=== PATIENT | female | born 1945 | race Caucasian/White ===

== ENCOUNTER 2017-07-13 13:31 | Inpatient (IN) | payer MEDICARE ==
[2017-07-13] MEDS ORDERED: Ondansetron ODT 4 MG TAB PO PRN (20:06)
[2017-07-13] MEDS ORDERED: Loperamide HCl 2 MG CAP PO PRN (20:06)
[2017-07-13] MEDS ORDERED: Milk Of Magnesia 30 ML UDCUP PO PRN (20:06)
[2017-07-13] MEDS ORDERED: Dextrose 50% Abboject 50 ML SYRINGE IVP PRN (20:10)
[2017-07-13] MEDS ORDERED: Dextrose 5% in Water 1,000 ML IV PRN (20:10)
[2017-07-13] MEDS ORDERED: Levemir Flexpen 100 UNITS/ML PEN SC SCH ×2 (21:00)
[2017-07-13] MEDS ORDERED: Famotidine 20 MG TAB PO SCH (21:00)
[2017-07-13] MEDS: Amantadine HCl 100 mg Capsule PO SCH (21:05)
[2017-07-13] MEDS: Famotidine 20 MG TAB PO SCH (21:06)
[2017-07-13] MEDS: Carvedilol 25 MG TAB PO SCH (21:06)
[2017-07-13] MEDS: Gabapentin 300 MG CAP PO SCH (21:07)
[2017-07-13] MEDS: Levemir Flexpen 100 UNITS/ML PEN SC SCH (21:07)
[2017-07-13] MEDS: diphenhydrAMINE HCl 25 MG CAP PO PRN (21:08)
[2017-07-13] MEDS: Acetaminophen 325 MG TAB PO PRN (21:08)
[2017-07-13] MEDS: Insulin Regular 300 UNITS/3 ML VIAL SC PRN (21:09)
--- NOTE | 2017-07-14 01:27 | HP ---
DATE OF ADMISSION: 07/13/2017 DATE OF HISTORY AND PHYSICAL: 07/13/2017 HISTORY OF PRESENT ILLNESS: Ms. Khalil is a very pleasant 71-year-old white female that was transf erred to [facility] for physical therapy and occupational therapy because of her gen eralized weakness. The patient was recently admitted to [facility] with increasing shortness of breath, dyspnea thought to be multifactorial. She has chronic hypoxemic respiratory failure and is followe d closely by Dr. Hurt. The patient was recently admitted to [facility] and thought to p ossibly have a questionable new partially occlusive thrombus in the lobar section of the branch of t he right lung consistent with pulmonary embolism. She does have some chronic thrombus in that left lower lobe pulmonary artery. She was started on Lovenox and admitted to the hospital. She has been stabilized and actually doing very well, but is very weak. Therefore, she was transferred to [facility] for physical therapy and occupational therapy. PAST MEDICAL HISTORY: Significant for, 1. Hypertension. 2. Stroke. 3. Multiple sclerosis. 4. Diabetes. 5. Left leg crush injury. 6. Acute on chronic normocytic anemia with questionable gastrointestinal bleed. 7. Chronic vocal cord paralysis with stridor. 8. Chronic obstructive pulmonary disease. 9. Lung cancer status post chemotherapy and lung resection followed by Dr. Leah Gentile. 10. History of multiple pulmonary emboli in the past, on chronic anticoagulation with Coumadin with a subtherapeutic dose. 11. Coronary artery disease, status post myocardial infarction with cardiac stents in the distant p ast. 12. Diabetes type 2, requiring insulin. PAST SURGICAL HISTORY: 1. Brain stent. 2. Appendectomy. 3. . 4. Hysterectomy with unilateral oophorectomy. 5. Knee surgery. 6. Ankle surgery. 7. Bilateral cataract surgery. 8. Left upper lobectomy secondary to lung cancer, adenocarcinoma. 9. Recent cardiac stent. 10. Endoscopy. 11. MediPort placement on the right chest wall. PRESENT MEDICATIONS: Reveal the patient was discharged to [facility] on the followin. Lovenox 110 mg subcu a day. 2. Plavix 75 mg a day. 3. Carvedilol 25 mg a day. 4. Lantus 35 units b.i.d. subcu. 5. Novolin aggressive sliding scale with meals. 6. Crestor 20 mg daily. 7. Amantadine 100 mg 3 times a day for her MS. 8. Pepcid 20 mg b.i.d. 9. Gabapentin 300 mg daily. 10. Sleep aid which is a Tylenol PM at night. ALLERGIES: CRAB MEAT. FAMILY HISTORY: Reveals patient's father in his 50s of ID, but he also had diabetes. The dony ent's mom at 62 of suicide. She was bipolar. Patient has no brothers or sisters. She has one son who is 42 and just started having diabetes. SOCIAL HISTORY: Reveals the patient lives in [place], [place] and is . She denies any recen t smoking, but has a 60+ pack year history. She states she smoked for 40 years and smoked anywhere from 1-2 packs a day, the majority of that time close to 2 packs. The patient usually has 2 drinks of hard liquor every evening, but has not had any drinks in the last 2 weeks. The patient stopped s moking in 08/2015. REVIEW OF SYSTEMS: Reveals the patient has had complaints of weight loss and mainly short of breath . She has not had any fever, chills, etc. She denies any significant rashes. She denies any grimaldo e in her vision or hearing. She denies any ear, nose or throat problems. She denies any significan t palpitations, but does have significant dyspnea on exertion. No orthopnea. She was short of yasmin th and occasionally wheezes. She has a paralyzed vocal cord from her lung surgery that gives her st ridor. She complains of better appetite since she is here, she states that food is very good. Zoltan es any nausea, vomiting, constipation or diarrhea at this time. Denies any urgency, frequency. She states she has significant weakness mainly because of her shortness of breath, but has had some pro blems with fatigue. PHYSICAL EXAMINATION: VITAL SIGNS: Reveal blood pressure 140/65, pulse 77-82, respirations 18-20, O2 saturation 98%, pres ently on room air, T-max 98.3. Point of care sugar was 310 before supper. GENERAL: Reveals a well-developed, well-nourished, somewhat obese white female in no apparent distr ess at this time. HEENT: Reveals normocephalic, nontraumatic cranium. Pupils are equally round and reactive. Extrao cular movements are intact. Nose and throat are slightly dry. NECK: Supple, without masses, nodes or bruits. No jugular venous distention is noted. LUNGS: Chest sounds are distant. Right upper chest wall MediPort is noted. HEART: Reveals a regular rate and rhythm without murmurs, gallops or rubs. ABDOMEN: Soft, nontender, without organomegaly. Somewhat obese. Normal bowel sounds are noted in all 4 quadrants. No rebound or guarding is noted. GENITOURINARY: Deferred. EXTREMITIES: Reveal no clubbing, cyanosis with minimal trace edema. NEUROLOGIC: The patient is oriented to person, place and time. No focal signs are noted. ASSESSMENT: 1. Chronic pulmonary emboli, presently on Lovenox 110 mg q.24 hours. The patient will not be on Cou madin. She will go home on Lovenox. 2. Chronic hypoxic respiratory failure followed by Dr. Hurt. 3. Acute on chronic normocytic anemia, unknown etiology for blood loss followed by Dr. Fofana with EGD on 07/08/2017. 4. Diabetes type 2, requiring 35 units of Lantus b.i.d. and aggressive sliding scale. 5. Chronic vocal cord paralysis secondary to patient's lung surgery. 6. FULL code. 7. Multiple sclerosis. 8. Generalized weakness. PLAN: 1. The patient will have physical therapy and occupational therapy. 2. We will continue with Lovenox 110 mg subcu daily. 3. Continue other medications. 4. Continue to follow the patient's diabetes with accu-Cheks a.c. and at bedtime with appropriate i nsulin supplementation. 5. Continue to follow the patient's blood pressure closely. 6. Follow the patient's respiratory status closely. 7. Follow the patient's blood pressure closely. 8. Discharge planning.
[2017-07-14] MEDS: Insulin Regular 300 UNITS/3 ML VIAL SC PRN ×4 (06:00→20:39)
[2017-07-14] MEDS ORDERED: Insulin Regular 300 UNITS/3 ML VIAL SC SCH (08:00)
[2017-07-14] MEDS: Carvedilol 25 MG TAB PO SCH ×2 (08:28→20:37)
[2017-07-14] MEDS: Enoxaparin Sodium 120 MG/0.8 ML SYRINGE SC SCH (08:28)
[2017-07-14] MEDS: Amantadine HCl 100 mg Capsule PO SCH ×3 (08:28→20:37)
[2017-07-14] MEDS: Clopidogrel Bisulfate 75 MG TAB PO SCH (08:28)
[2017-07-14] MEDS: Levemir Flexpen 100 UNITS/ML PEN SC SCH ×2 (08:29→20:38)
[2017-07-14] MEDS: Gabapentin 300 MG CAP PO SCH ×3 (08:29→20:37)
[2017-07-14] MEDS: Famotidine 20 MG TAB PO SCH ×2 (08:29→20:37)
[2017-07-14] MEDS ORDERED: Levemir Flexpen 100 UNITS/ML PEN SC SCH (09:00)
[2017-07-14] MEDS ORDERED: Enoxaparin Sodium 30 MG/0.3 ML SYRINGE SC SCH (09:00)
[2017-07-14 11:48] VITALS: BMI 28.1
--- NOTE | 2017-07-14 13:48 | PRG ---
DATE OF SERVICE: 07/14/2017 HISTORY OF PRESENT ILLNESS: Ms. Khalil is a pleasant 71-year-old white female that was transferred from [facility] to [facility], because of generalized weakness. She also has diabetes out of control, hypertension and multiple sclerosis. She was transferred here mainly f or physical therapy and occupational therapy. SUBJECTIVE: The patient states she is doing much better. She walked around the nurses' station, st opped a couple times for shortness of breath, but she states she actually felt much better than she thought she would. She is getting a little stronger and her respiratory status is slightly improved . She has no complaints today. LABORATORY DATA: No labs were done today. Her sugars are elevated. Her point of care sugars revea l sugar yesterday before supper 310, before bedtime 294, fasting this morning 286, before lunch 294. We have adjusted her Levemir from 36 units b.i.d. to 40 units b.i.d. We will watch that closely. She is already on aggressive sliding scale. PHYSICAL EXAMINATION: GENERAL: This is a well-developed, well-nourished, slightly obese white female, in no apparent dist ress at this time. VITAL SIGNS: Today reveal the blood pressure is 129/55, O2 sat is 94-95, pulse is in the 70s, respi rations are 20, T-max is 96.6. HEENT: Reveals normocephalic, nontraumatic cranium. Pupils are equally round and reactive. Extrao cular movements intact. Nose and throat are slightly dry. NECK: Supple, without masses, nodes or bruits. CHEST: Clear to auscultation. No rales, rhonchi or wheezes are heard. Right upper chest wall has a MediPort. CARDIOVASCULAR: Heart reveals a regular rate and rhythm. No rubs, murmurs, gallops or rubs are not ed. ABDOMEN: Soft, obese, nontender, without organomegaly. Normal bowel sounds are noted in all 4 quad rants. No rebound or guarding is noted. GENITOURINARY: Deferred. EXTREMITIES: Reveal no clubbing, cyanosis or edema. NEUROLOGIC: Patient is oriented to person, place and time. The patient's is in the room wi th her. ASSESSMENT: 1. Chronic pulmonary emboli present on Lovenox 110 mg subcutaneously q.24 hours and the patient christina hunter go home on Lovenox. 2. Hypoxic chronic respiratory failure, followed by Dr. Hurt. 3. Acute on chronic normocytic anemia, unknown etiology for blood loss, followed by Dr. Fofana. 4. Diabetes type 2, presently on 40 units of Lantus b.i.d. and aggressive sliding scale. 5. Chronic vocal cord paralysis secondary to patient's lung surgery. 6. Full code. 7. Multiple sclerosis. 8. Generalized weakness. PLAN: 1. Continue Lovenox 110 mg subcu daily. 2. Increase the patient's Levemir to 40 units subcu b.i.d. and continue aggressive sliding scale. 3. Continue other present medications. 4. Continue respiratory medications. 5. Continue physical therapy and occupational therapy. 6. Laboratory on Monday. Otherwise, probably would do laboratory every week 1-2 weeks. 7. Followup the patient's blood pressure closely. 8. Continue to follow the patient with Accu-Cheks a.c. and at bedtime. 9. Continue physical therapy and occupational therapy. 10. Deep venous thrombosis and stress ulcer prophylaxis. 11. Decubitus precautions. 12. Discharge planning.
[2017-07-14] MEDS: Acetaminophen 325 MG TAB PO PRN (20:37)
[2017-07-14] MEDS: diphenhydrAMINE HCl 25 MG CAP PO PRN (20:38)
[2017-07-15 05:33] LABS: #Basophils 0.1 thou/uL (0.0-0.2); #Eosinphils 0.2 thou/uL (0.0-0.7); #Lymphocytes 2.3 thou/uL (1.20-3.40); #Monocytes 0.6 thou/uL (0.11-0.59); #Neutrophils 3.3 thou/uL (1.40-6.50); %Basophils 1.1 % (0.0-1.0); %Eosinophils 2.5 % (0.0-10.0); %Lymphocytes 35.9 % (21.0-51.0); %Monocytes 9.6 % (0.0-10.0); Hemoglobin 8.6 g/dL (12.0-16.0); Mean Corpuscular HGB CONC 32.1 g/dL (32.0-36.0); Mean Corpuscular Hemoglobin 30.4 pg (27.0-31.0); Mean Corpuscular Volume 94.5 fl (81.0-99.0); Mean Platelet Volume 7.8 fL (7.4-10.4); Platelet Count 183 thou/uL (130-400); Red Blood Cell (RBC) Count 2.84 mill/uL (4.20-5.40); White Blood Cell (WBC) Count 6.4 thou/uL (4.8-10.8)
[2017-07-15 05:55] LABS: ALT (SGPT) 17 U/L (8-55); AST (SGOT) 9 U/L (5-34); Albumin 3.2 g/dL (3.4-4.8); Alkaline Phosphatase 75 U/L (40-150); Anion Gap 12 mmol/L (10-20); BUN (Urea Nitrogen) 22 mg/dL (9.8-20.1); Bilirubin, Total 0.2 mg/dL (0.2-1.2); Calc. Creatinine Clearance 60 mL/min (70-130); Calcium 9.3 mg/dL (7.8-10.44); Carbon Dioxide 26 mmol/L (23-31); Chloride 107 mmol/L (98-107); Estimated GFR-MDRD 55; Globulin 2.3 g/dL (2.4-3.5); Glucose 74 mg/dL (80-115); Potassium 4.1 mmol/L (3.5-5.1); Protein, Total 5.5 g/dL (6.0-8.3); Sodium 141 mmol/L (136-145)
[2017-07-15] MEDS: Carvedilol 25 MG TAB PO SCH ×2 (08:29→20:55)
[2017-07-15] MEDS: Enoxaparin Sodium 120 MG/0.8 ML SYRINGE SC SCH (08:29)
[2017-07-15] MEDS: Clopidogrel Bisulfate 75 MG TAB PO SCH (08:29)
[2017-07-15] MEDS: Amantadine HCl 100 mg Capsule PO SCH ×3 (08:29→20:55)
[2017-07-15] MEDS: Levemir Flexpen 100 UNITS/ML PEN SC SCH ×2 (08:30→20:55)
[2017-07-15] MEDS: Gabapentin 300 MG CAP PO SCH ×3 (08:30→20:55)
[2017-07-15] MEDS: Famotidine 20 MG TAB PO SCH ×2 (08:30→20:55)
--- NOTE | 2017-07-15 09:40 | PRG ---
DATE OF SERVICE: 07/15/2017 SUBJECTIVE: The patient is a 71-year-old white female patient of Dr. Fernando Michael with a history o f labile controlled diabetes, hypertension, and multiple sclerosis and recurrent pulmonary embolus o f unknown etiology who presents now with another pulmonary embolus and has been placed on subcu Love nox indefinitely and admitted to the skilled unit for acute conditioning. She has had thrombosis ev aluation with no etiology for her recurrent pulmonary embolus as this is her second pulmonary embolu s despite no provoking event. At this time she feels well with no shortness of breath at rest. No chest pain, palpitations, dyspnea or leg pain. OBJECTIVE: Shows her blood pressure 115/63, temperature 97.8, pulse 74, respirations 18, O2 sats 95 %. Laboratory shows white count 6400, hematocrit 26, hemoglobin 8.6, platelet 183,000. Sodium 141, potassium 4.1, chloride 107, bicarbonate 26, BUN 22, creatinine 1, glucose 74, calcium 9.3, total b ilirubin 0.2, total protein 5.5, albumin 3.2, globulin 2.3. Lungs are clear. Cardiac examination s hows regular rhythm. Abdomen is soft, nontender. Skin and extremities show no edema or swelling Ac cu-Cheks are variable ranging from 80-375 on sliding scale. ASSESSMENT: 1. Labile diabetes controlled with sliding scale at home. We will continue that here. 2. Recurrent pulmonary embolus of unknown etiology, unprovoked on Lovenox 110 mg daily, subcu and w ill continue on this. 3. Hypoxic respiratory failure, resolving. 4. Acute on chronic anemia, stable at this time, being followed. 5. Multiple sclerosis. 6. Mild vocal cord paralysis. PLAN: 1. Continue Lovenox 110 daily. 2. Continue sliding scale and Levemir 40 units twice daily. 3. Continue to monitor blood pressure and orthostatic vital signs with therapy. 4. Continue DVT and stress ulcer prophylaxis. 5. Continue oxygen supplementation if needed.
[2017-07-15] MEDS: Insulin Regular 300 UNITS/3 ML VIAL SC PRN ×3 (11:39→20:56)
[2017-07-15] MEDS: diphenhydrAMINE HCl 25 MG CAP PO PRN (20:54)
[2017-07-15] MEDS: Acetaminophen 325 MG TAB PO PRN (20:55)
[2017-07-16] MEDS: Amantadine HCl 100 mg Capsule PO SCH ×3 (08:33→21:14)
[2017-07-16] MEDS: Carvedilol 25 MG TAB PO SCH ×2 (08:33→21:14)
[2017-07-16] MEDS: Clopidogrel Bisulfate 75 MG TAB PO SCH (08:33)
[2017-07-16] MEDS: Famotidine 20 MG TAB PO SCH ×2 (08:34→21:14)
[2017-07-16] MEDS: Enoxaparin Sodium 120 MG/0.8 ML SYRINGE SC SCH (08:34)
[2017-07-16] MEDS: Gabapentin 300 MG CAP PO SCH ×3 (08:34→21:14)
[2017-07-16] MEDS: Levemir Flexpen 100 UNITS/ML PEN SC SCH ×2 (08:34→21:15)
[2017-07-16] MEDS: Insulin Regular 300 UNITS/3 ML VIAL SC PRN ×3 (12:03→21:16)
[2017-07-16] MEDS ORDERED: FLU VACC TS2017-18 (>65YR) 0.5 ML SYRINGE IM ONE (21:00)
[2017-07-16] MEDS: Acetaminophen 325 MG TAB PO PRN (21:14)
[2017-07-16] MEDS: diphenhydrAMINE HCl 25 MG CAP PO PRN (21:14)
[2017-07-17] MEDS: Acetaminophen 325 MG TAB PO PRN ×3 (07:24→20:23)
[2017-07-17] MEDS: Enoxaparin Sodium 120 MG/0.8 ML SYRINGE SC SCH (08:38)
[2017-07-17] MEDS: Levemir Flexpen 100 UNITS/ML PEN SC SCH ×2 (08:40→20:22)
[2017-07-17] MEDS: Amantadine HCl 100 mg Capsule PO SCH ×3 (08:42→20:21)
[2017-07-17] MEDS: Famotidine 20 MG TAB PO SCH ×2 (08:42→20:21)
[2017-07-17] MEDS: Gabapentin 300 MG CAP PO SCH ×3 (08:42→20:22)
[2017-07-17] MEDS: Clopidogrel Bisulfate 75 MG TAB PO SCH (08:42)
[2017-07-17] MEDS: Carvedilol 25 MG TAB PO SCH ×2 (08:42→20:21)
[2017-07-17] MEDS: Insulin Regular 300 UNITS/3 ML VIAL SC PRN ×3 (11:35→20:23)
--- NOTE | 2017-07-17 17:09 | PRG ---
DATE OF SERVICE: 07/17/2017 DATE OF ADMISSION: 07/13/2017 HISTORY OF PRESENT ILLNESS: Ms. Khalil is a very pleasant 71-year-old white female transferred fro [facility] with generalized weakness. She has multiple problems including diabetes out o f control, hypertension, and multiple sclerosis. She is transferred here mainly for physical therap y and for pulmonary therapy. SUBJECTIVE: The patient states she had a really good day yesterday. She walked quite a bit, but th is morning when she got up to go to the bathroom, she had significant shortness of breath and became anxious. Otherwise, she has no complaints. She actually had been feeling better and little bit st ronger. PHYSICAL EXAMINATION: VITAL SIGNS: Reveal blood pressure is 111/58, pulse 74-83, respirations 18, O2 sat 95%, T-max 97.9. GENERAL: This is a well-developed, well-nourished, pleasant white female in no apparent distress at this time. HEENT: Reveals normocephalic, nontraumatic cranium. Pupils are equally round and reactive. Extrao cular movements are intact. Nose and throat are slightly dry. NECK: Supple, without masses, nodes or bruits. CHEST: Distant but clear. Breath sounds are slow. CARDIOVASCULAR: Reveals a regular rate and rhythm without murmurs, gallops or rubs. ABDOMEN: Slightly obese, soft, nontender, without organomegaly. Normal bowel sounds are noted. No rebound or guarding is noted. : Deferred. EXTREMITIES: Reveal no clubbing, cyanosis, and no edema. NEUROLOGIC: Patient is oriented to person, place and time. The patient's is again in the r oom. ASSESSMENT: 1. Chronic pulmonary emboli, presently on Lovenox 110 mg subcu q.24 hours. The patient will go nilay e on Lovenox with this dose. 2. Hypoxic chronic respiratory failure followed by Dr. Alvarado. 3. Acute on chronic normocytic anemia, etiology unknown for blood loss, followed by Dr. Fofana. 4. Diabetes type 2, presently on 40 units Lantus b.i.d. and aggressive sliding scale. 5. Chronic vocal cord paralysis secondary to patient's lung surgery. 6. FULL CODE. 7. Multifocal sclerosis 8. Generalized weakness. PLAN: 1. Continue Lovenox subcu once daily. 2. Increase the patient's Levemir, which we are continuing to follow her sugars to 40 units b.i.d. and continue aggressive sliding scale. 3. Continue Accu-Cheks a.c. and at bedtime. 4. Continue to follow the patient's blood pressure closely. 5. Continue PT and OT. 6. Continue DVT and stress ulcer prophylaxis. 7. Decubitus precautions. 8. Discharge planning.
[2017-07-17] MEDS: diphenhydrAMINE HCl 25 MG CAP PO PRN (20:23)
[2017-07-17] MEDS ORDERED: FLU VACC QS2017-18 36 mo. & older 0.5 ML SYRINGE IM ONE (21:00)
[2017-07-18] MEDS: Acetaminophen 325 MG TAB PO PRN ×3 (05:42→19:02)
[2017-07-18] MEDS: Insulin Regular 300 UNITS/3 ML VIAL SC PRN ×3 (05:43→17:22)
[2017-07-18] MEDS ORDERED: FLU VACC QS2017-18 36 mo. & older 0.5 ML SYRINGE IM ONE (09:00)
[2017-07-18] MEDS: Clopidogrel Bisulfate 75 MG TAB PO SCH (09:07)
[2017-07-18] MEDS: Levemir Flexpen 100 UNITS/ML PEN SC SCH ×3 (09:08→21:21)
[2017-07-18] MEDS: Enoxaparin Sodium 120 MG/0.8 ML SYRINGE SC SCH (09:08)
[2017-07-18] MEDS: Gabapentin 300 MG CAP PO SCH ×3 (09:08→20:45)
[2017-07-18] MEDS: Carvedilol 25 MG TAB PO SCH ×2 (09:08→20:44)
[2017-07-18] MEDS: Amantadine HCl 100 mg Capsule PO SCH ×3 (09:08→20:44)
[2017-07-18] MEDS: Famotidine 20 MG TAB PO SCH ×2 (09:08→20:45)
[2017-07-18] MEDS: diphenhydrAMINE HCl 25 MG CAP PO PRN (20:45)
[2017-07-18] MEDS: Cyclobenzaprine 10 MG TAB PO PRN (21:22)
--- NOTE | 2017-07-18 23:41 | PRG ---
DATE OF SERVICE: 07/18/2017 SUBJECTIVE: The patient is a 72-year-old very pleasant white female transferred from [facility] with multiple medical problems including hypertension, diabetes out of control, multiple scler osis, headaches, and COPD. The patient states she had a good day today. It is [birth year] birthday today. She did walk this morning and states she is getting somewhat stronger. She is still concerned abou t her shortness of breath and when she gets short of breath, she becomes more anxious. She also is complaining about waking up with a headache which is more described as a muscle contraction headache . We will try a little cyclobenzaprine 10 mg p.r.n. muscle spasm headaches. Otherwise, the patient has no complaints. PHYSICAL EXAMINATION: VITAL SIGNS: Reveal blood pressure is 142/59, pulse 66-69, respirations 18-20, O2 saturation 90%-96 %. GENERAL: This is a well-developed, well-nourished, slightly obese white female, in no apparent dist ress at this time. HEENT: Reveals normocephalic, nontraumatic cranium. Pupils are equally round and reactive. Extrao cular movements are intact. Nose and throat are somewhat dry. NECK: Supple without masses, nodes, or bruits. CHEST: Clear to auscultation but very distant. Breath sounds reveal some prolonged expiratory, but no wheezes. HEART: Reveals a regular rate and rhythm without murmurs, gallops, or rubs. ABDOMEN: Still slightly obese, nontender without organomegaly. Normal bowel sounds are noted. No guarding or rebound is noted. GENITOURINARY: Deferred. EXTREMITIES: Reveal no clubbing, cyanosis, or edema today. NEUROLOGIC: The patient is oriented to person, place, time, and situation. ASSESSMENT: 1. Chronic obstructive pulmonary disease. 2. Chronic pulmonary emboli, on Lovenox 110 mcg subcutaneous q. 24 hours. 3. Chronic hypoxic respiratory failure, followed by Dr. Alvarado. 4. Acute on chronic normocytic anemia, unknown etiology, followed by Dr. Fofana. 5. Diabetes type 2, presently on Lantus 40 units b.i.d. and aggressive sliding scale. 6. Chronic vocal cord paralysis secondary to the patient's lung cancer, followed by Dr. Silverio. 7. FULL CODE. 8. Multiple sclerosis. 9. Generalized weakness. PLAN: 1. Continue Lovenox. 2. Continue to adjust the patient's sugars closely and watch his sugars. 3. Continue Accu-Cheks a.c. and at bedtime. 4. Follow the patient's blood pressure closely. 5. Continue physical therapy, occupational therapy. 6. Deep venous thrombosis and stress ulcer prophylaxis. 7. Decubitus precaution. 8. Discharge planning. 9. The patient's [id number] sugars reveal this morning fasting 154, before lunch 152, before bed time 256. We will increase her Lantus again.
[2017-07-19 05:20] LABS: Platelet Count 256 thou/uL (130-400)
[2017-07-19] MEDS: Insulin Regular 300 UNITS/3 ML VIAL SC PRN ×4 (05:35→20:37)
[2017-07-19] MEDS: Acetaminophen 325 MG TAB PO PRN (06:09)
[2017-07-19] MEDS: Amantadine HCl 100 mg Capsule PO SCH ×3 (08:18→20:35)
[2017-07-19] MEDS: Famotidine 20 MG TAB PO SCH ×2 (08:19→20:36)
[2017-07-19] MEDS: Carvedilol 25 MG TAB PO SCH ×2 (08:19→20:35)
[2017-07-19] MEDS: Enoxaparin Sodium 120 MG/0.8 ML SYRINGE SC SCH (08:19)
[2017-07-19] MEDS: Clopidogrel Bisulfate 75 MG TAB PO SCH (08:19)
[2017-07-19] MEDS: Levemir Flexpen 100 UNITS/ML PEN SC SCH ×2 (08:20→20:36)
[2017-07-19] MEDS: Gabapentin 300 MG CAP PO SCH ×3 (08:20→20:36)
[2017-07-19] MEDS: Cyclobenzaprine 10 MG TAB PO PRN ×2 (11:47→20:36)
--- NOTE | 2017-07-20 00:09 | PRG ---
DATE OF ADMISSION: 07/13/2017 DATE OF SERVICE: 07/19/2017 HISTORY OF PRESENT ILLNESS: Ms. Khalil is a very pleasant 72-year-old white female transferred to [facility] for physical therapy and occupational therapy. She had acute COPD and respiratory failu re. She also has MS, hypertension, diabetes out of control, headaches. The patient states she is doing much better. She did take cyclobenzaprine 10 mg and Benadryl 25 las t night and was very unstable going to the bathroom last night. That was too much medication for he r. She states she woke up this morning feeling much better without a headache. She did take a Flex eril during the day today without a hangover and it did help her headache. She states she is breath ing much better and actually went to the bathroom with help from her and came back, was shor t of breath, but much improved than what she had been doing. LABORATORY DATA: Today reveal hemoglobin 9.0, hematocrit 28.4, which is improved. Her GFR is up to 51. Her creatinine 1.07. Point of care sugars today reveal sugar this morning 161, before lunch 2 89, before supper 175. OBJECTIVE: VITAL SIGNS: Reveal blood pressure 106/53, pulse 71, respirations 18, O2 sat 96%, T-max 98.9. GENERAL: This is a well-developed, well-nourished, slightly obese white female in no apparent distr ess at this time. HEENT: Reveals normocephalic, nontraumatic cranium. Pupils are equally round and reactive. Extrao cular movements intact. Nose and throat are clear, slightly dry. NECK: Supple, without masses, nodes or bruits. No jugular venous distention is noted. LUNGS: Breath sounds are distant, but clear. Less cough is noted today. No rales, rhonchi or whee zes are heard. CARDIOVASCULAR: Heart reveals a regular rate and rhythm without murmurs, gallops or rubs. ABDOMEN: Slightly obese. Nontender, without organomegaly. Normal bowel sounds are noted in all 4 quadrants. No guarding or rebound is noted. : Deferred. EXTREMITIES: Reveal no clubbing, cyanosis or edema. The patient continues to be oriented x4. ASSESSMENT: 1. Chronic obstructive pulmonary disease. 2. Chronic pulmonary emboli, on Lovenox 110 mcg subcu daily. 3. Chronic hypoxic respiratory failure followed by Dr. Alvarado. 4. Acute on chronic normocytic anemia of unknown etiology. Followed by Dr. Fofana. 5. Diabetes type 2 presently on Lantus 40 b.i.d. and an aggressive sliding scale. Sugars are sligh tly improved. 6. Chronic cord paralysis secondary to patient's lung cancer surgery, followed by Dr. Silverio. 7. FULL CODE. 8. Multiple sclerosis. 9. Generalized weakness. PLAN: 1. Continue physical therapy and occupational therapy. 2. We will continue follow Accu-Cheks a.c. and at bedtime and adjust insulin Lantus is noted. 3. We will continue patient's blood pressure closely. 4. Continued deep venous thrombosis and stress ulcer prophylaxis. 5. Continue decubitus precautions. 6. Discharge planning.
[2017-07-20] MEDS: Cyclobenzaprine 10 MG TAB PO PRN ×2 (04:49→20:34)
[2017-07-20] MEDS: Insulin Regular 300 UNITS/3 ML VIAL SC PRN ×4 (05:36→20:32)
[2017-07-20] MEDS: Clopidogrel Bisulfate 75 MG TAB PO SCH (08:46)
[2017-07-20] MEDS: Enoxaparin Sodium 120 MG/0.8 ML SYRINGE SC SCH (08:46)
[2017-07-20] MEDS: Famotidine 20 MG TAB PO SCH ×2 (08:46→20:31)
[2017-07-20] MEDS: Amantadine HCl 100 mg Capsule PO SCH ×3 (08:46→20:31)
[2017-07-20] MEDS: Gabapentin 300 MG CAP PO SCH ×3 (08:46→20:31)
[2017-07-20] MEDS: Carvedilol 25 MG TAB PO SCH ×2 (08:46→20:31)
[2017-07-20] MEDS: Levemir Flexpen 100 UNITS/ML PEN SC SCH ×2 (08:47→20:34)
[2017-07-20] MEDS: Acetaminophen 325 MG TAB PO PRN (10:38)
--- NOTE | 2017-07-20 21:11 | PRG ---
DATE OF SERVICE: 07/20/2017 HISTORY OF PRESENT ILLNESS: Ms. Khalil is a very pleasant 72-year-old white female who has had mul tiple medical problems and is basically transferred here for physical therapy, occupational therapy, and pulmonary rehabilitation. SUBJECTIVE: The patient states she is doing much better today. She was able to do some type of the rapy today for 6 minutes, yesterday was only 2 minutes and the day before it was 1 minute. She stat es she is breathing little bit better, but she continues to have lots of secretions. She continues to used to have headache, we did some pressure points that helped a little bit, but states cyclobenz aprine helps a little bit, not tremendously. She has no other complaints today. PHYSICAL EXAMINATION: VITAL SIGNS: Blood pressure is 121/56, pulse 68-71, respirations 18-20, O2 sat 95-96%, T-max 98.9. GENERAL: This is a well-developed, well-nourished, very pleasant white female in no apparent distre ss at this time. HEENT: Reveals normocephalic, nontraumatic cranium. Pupils are equally round and reactive. Extrao cular movements intact. Nose and throat are clear but continued to be slightly dry. NECK: Supple without masses, nodes or bruits. LUNGS: Chest reveals distant breath sounds. The patient continues to have loose raspy type cough. No rales or rhonchi are heard. No wheezes are heard. CARDIOVASCULAR: Reveals a regular rate and rhythm without murmurs, gallops or rubs. ABDOMEN: Soft, nontender without organomegaly. Normal bowel sounds in all 4 quadrants. No rebound or guarding. GENITOURINARY: Deferred. EXTREMITIES: Reveal no clubbing, cyanosis or edema. ASSESSMENT: 1. Chronic obstructive pulmonary disease. 2. Chronic pulmonary emboli, on Lovenox 110 mcg subQ daily. 3. Chronic hypoxic respiratory failure followed by Dr. Alvarado. 4. Acute on chronic normocytic anemia of unknown etiology, followed by Dr. Fofana. 5. Diabetes type 2. We increased her Lantus from 40-44 and now we are increasing it to 48. 6. Chronic cord paralysis secondary to the patient's lung cancer surgery, followed by Dr. Silverio. 7. FULL CODE. 8. Multiple sclerosis. 9. Generalized weakness. PLAN: 1. Continue to encourage the patient to eat well. 2. Continue stress ulcer prophylaxis. 3. DVT prophylaxis. 4. Decubitus precautions. 5. Continue physical therapy and occupational therapy. 6. We will continue follow Accu-Cheks a.c. and at bedtime and monitor Lantus and adjust as noted. 7. Continue to follow the patient's blood pressure closely. 8. DVT and stress ulcer prophylaxis. 9. Continue decubitus precautions. 10. Discharge planning.
[2017-07-21] MEDS: Insulin Regular 300 UNITS/3 ML VIAL SC PRN ×3 (05:44→21:25)
[2017-07-21 06:01] LABS: Platelet Count 265 thou/uL (130-400)
[2017-07-21] MEDS: Levemir Flexpen 100 UNITS/ML PEN SC SCH ×2 (08:46→21:26)
[2017-07-21] MEDS: Enoxaparin Sodium 120 MG/0.8 ML SYRINGE SC SCH (08:49)
[2017-07-21] MEDS: Cyclobenzaprine 10 MG TAB PO PRN (08:50)
[2017-07-21] MEDS: Gabapentin 300 MG CAP PO SCH ×3 (08:50→21:28)
[2017-07-21] MEDS: Acetaminophen 325 MG TAB PO PRN (08:50)
[2017-07-21] MEDS: Famotidine 20 MG TAB PO SCH ×2 (08:51→21:28)
[2017-07-21] MEDS: Carvedilol 25 MG TAB PO SCH ×2 (08:51→21:28)
[2017-07-21] MEDS: Amantadine HCl 100 mg Capsule PO SCH ×3 (08:51→21:28)
[2017-07-21] MEDS: Clopidogrel Bisulfate 75 MG TAB PO SCH (08:51)
--- NOTE | 2017-07-21 09:32 | PRG ---
DATE OF SERVICE: 07/21/2017 HISTORY: Ms. Khalil is a very pleasant 72-year-old white female with multiple medical problems. B asically she was transferred to [facility] for physical therapy, occupational therap y, and pulmonary rehab. SUBJECTIVE: The patient states she has had a good night last night, but she has a terrible headache this morning. She is supposed asked for her cyclobenzaprine when she has these muscle type headach es. I did some pressure points which helped a little bit, but she will still ask for her cyclobenza lashon this morning. She has no significant complaints and states her breathing is somewhat better. VITAL SIGNS: Blood pressure this morning is 136/63, pulse 68-71, respirations 18-20, O2 sat 95-100% , T-max 98.1. LABORATORY: Laboratory reveals a hemoglobin 9.0, hematocrit 28.6 and platelet count 265,000. Creat inine is 1.23. GFR is 43. Her point of care sugars reveal fasting this morning 184, last night 281 , before supper 190, before lunch not recorded, yesterday morning fasting 155. The patient's sugars are generally overall slightly better. When we first admitted her, they were typically 250 to 375. Typically now she has only 1 that is in the 200s per day and we will continue to adjust her insuli n as those come down. PHYSICAL EXAMINATION: GENERAL: This is a well-developed, well-nourished, pleasant white female in no apparent distress at this time. HEENT: Reveals normocephalic, nontraumatic cranium. Pupils are equally round and reactive. Extrao cular movements intact. Nose and throat are slightly dry. NECK: Supple, without masses, nodes or bruits. CHEST: Clear to auscultation. No rales, no rhonchi, no wheezes are heard. HEART: Reveals a regular rate and rhythm without murmurs, gallops or rubs. ABDOMEN: Slightly obese, soft, nontender, without organomegaly. Normal bowel sounds are noted in a ll 4 quadrants. : Deferred. EXTREMITIES: Reveal no clubbing, cyanosis or edema. ASSESSMENT: 1. Pulmonary emboli, presently on Lovenox 110 subcutaneous daily, and she will go home with that. 2. Chronic obstructive pulmonary disease. 3. Chronic hypoxic respiratory failure followed by Dr. Alvarado. 4. Acute on chronic normocytic anemia of unknown etiology, followed by Dr. Fofana. 5. Diabetes type 2, under much better control. 6. 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 Silverio. 7. Multiple sclerosis. 8. Generalized weakness. 9. Full code. PLAN: 1. Continue to encourage the patient to get up and move around per her PT, OT, and pulmonary rehab. 2. Continue stress ulcer prophylaxis. 3. DVT prophylaxis. 4. Decubitus precautions. 5. Physical therapy and occupational therapy. 6. Continue to follow Accu-Cheks and adjust insulin Lantus as needed. 7. Follow the patient's blood pressure closely. 8. Continue decubitus precautions. 9. DVT and stress ulcer prophylaxis. 10. Discharge planning.
[2017-07-22] MEDS: Cyclobenzaprine 10 MG TAB PO PRN ×2 (05:51→21:35)
[2017-07-22] MEDS: Acetaminophen 325 MG TAB PO PRN ×2 (05:51→21:36)
[2017-07-22] MEDS: Levemir Flexpen 100 UNITS/ML PEN SC SCH ×2 (08:47→21:36)
[2017-07-22] MEDS: Enoxaparin Sodium 120 MG/0.8 ML SYRINGE SC SCH (08:48)
[2017-07-22] MEDS: Famotidine 20 MG TAB PO SCH ×2 (08:50→21:36)
[2017-07-22] MEDS: Gabapentin 300 MG CAP PO SCH ×3 (08:50→21:36)
[2017-07-22] MEDS: Carvedilol 25 MG TAB PO SCH ×2 (08:50→21:36)
[2017-07-22] MEDS: Amantadine HCl 100 mg Capsule PO SCH ×3 (08:50→21:35)
[2017-07-22] MEDS: Clopidogrel Bisulfate 75 MG TAB PO SCH (08:50)
[2017-07-22] MEDS: Insulin Regular 300 UNITS/3 ML VIAL SC PRN ×2 (11:32→16:41)
--- NOTE | 2017-07-22 12:10 | PRG ---
DATE OF SERVICE: 07/22/[address] Xavier Michael. SUBJECTIVE: The patient is resting well. No complaints of shortness of breath, chest pain, headach e, fatigue at rest. Has been eating well and cooperating with therapy. OBJECTIVE: VITAL SIGNS: Show temperature 99.3, pulse 75, respirations 18, blood pressure 161/65, and O2 sats 9 1%. LUNGS: Clear. CARDIAC: Examination shows regular rhythm. ABDOMEN: Soft, nontender. SKIN AND EXTREMITIES: Show no edema, clubbing, cyanosis. ASSESSMENT: 1. Stable pulmonary embolus on Lovenox 110 mg subcutaneously daily. 2. Metastatic lung cancer being followed by Dr. Gentile. 3. Multiple sclerosis, chronic. 4. Type 2 diabetes under good control. 5. Chronic hypoxic respiratory failure, appears to be stable, being followed by Dr. Alvarado. 6. Stable chronic obstructive pulmonary disease. PLAN: Continue Lovenox. Continue physical therapy and occupational therapy. Continue Accu-Cheks, control diabetes. Discussed discharge planning with PCP, Dr. Michael. Continue above-mentioned the rapy including Lovenox be discharged home. Continue Lantus subcutaneously twice daily and sliding s kaye.
[2017-07-23 05:57] LABS: Hemoglobin 9.2 g/dL (12.0-16.0); Platelet Count 260 thou/uL (130-400)
[2017-07-23] MEDS: Carvedilol 25 MG TAB PO SCH ×2 (08:41→21:08)
[2017-07-23] MEDS: Famotidine 20 MG TAB PO SCH ×2 (08:41→21:09)
[2017-07-23] MEDS: Amantadine HCl 100 mg Capsule PO SCH ×3 (08:41→21:09)
[2017-07-23] MEDS: Clopidogrel Bisulfate 75 MG TAB PO SCH (08:41)
[2017-07-23] MEDS: Gabapentin 300 MG CAP PO SCH ×3 (08:42→21:09)
[2017-07-23] MEDS: Enoxaparin Sodium 120 MG/0.8 ML SYRINGE SC SCH (08:42)
[2017-07-23] MEDS: Levemir Flexpen 100 UNITS/ML PEN SC SCH ×2 (08:44→21:07)
--- NOTE | 2017-07-23 13:33 | PRG ---
DATE OF SERVICE: 07/23/2017 SUBJECTIVE: The patient feels well, sitting up in the chair, visiting with her , has had her shower with no difficulty. Has been ambulating some in the room, feels she is getting better, but is still very weak. OBJECTIVE: VITAL SIGNS: Blood pressure 118/53, temperature is 95.9, pulse 63, respirations 18, O2 sats 98% on room air. LUNGS: Clear. CARDIAC: Regular rhythm. ABDOMEN: Soft, nontender. SKIN and EXTREMITIES: Show no edema, clubbing, or cyanosis. ASSESSMENT: 1. Resolving pulmonary embolus on Lovenox 110 mg subcu daily. 2. Metastatic lung cancer being followed by Dr. Gentile every 3 months on no therapy with no sympto ms. 3. Type 2 diabetes, good control. 4. Chronic hypoxic respiratory failure, greatly improved with O2 sat 98% on room air at this time. 5. Multiple sclerosis, slowly improving strength. PLAN: 1. Continue PT, OT. 2. Continue Lovenox. 3. Continue stress ulcer prophylaxis. 4. Dr. Michael back tomorrow.
[2017-07-23] MEDS: Acetaminophen 325 MG TAB PO PRN (21:08)
[2017-07-23] MEDS: Cyclobenzaprine 10 MG TAB PO PRN (21:09)
[2017-07-23] MEDS: Insulin Regular 300 UNITS/3 ML VIAL SC PRN (21:11)
[2017-07-24] MEDS: Clopidogrel Bisulfate 75 MG TAB PO SCH (08:49)
[2017-07-24] MEDS: Enoxaparin Sodium 120 MG/0.8 ML SYRINGE SC SCH (08:49)
[2017-07-24] MEDS: Amantadine HCl 100 mg Capsule PO SCH ×3 (08:49→20:33)
[2017-07-24] MEDS: Carvedilol 25 MG TAB PO SCH ×2 (08:49→20:33)
[2017-07-24] MEDS: Famotidine 20 MG TAB PO SCH ×2 (08:50→20:33)
[2017-07-24] MEDS: Gabapentin 300 MG CAP PO SCH ×3 (08:50→20:33)
[2017-07-24] MEDS: Levemir Flexpen 100 UNITS/ML PEN SC SCH ×2 (08:50→20:34)
--- NOTE | 2017-07-24 13:40 | PRG ---
DATE OF ADMISSION: 07/13/2017 DATE OF SERVICE: 07/24/2017 SUBJECTIVE: Ms. Khalil is a very pleasant 72-year-old white female. She was transferred to [facility] for physical therapy, occupational therapy, and pulmonary rehabilitation. She basically has multiple medical problems including COPD with a pulmonary emboli on top of that and di abetes type 2 which has been significantly out of control. LABORATORY DATA: Reveals a hemoglobin of 9.2, hematocrit 29.5, which is improving. Creatinine is 1 .29. GFR 41. Her sugars this morning fasting was 42, given a snack went to 66 now before lunch was 161. Last night before bedtime 279, before supper 155, before lunch 129, before breakfast yesterda y morning 89. Her sugars were low, so we did decrease her Levemir from 48 b.i.d. to 46 b.i.d. PHYSICAL EXAMINATION: VITAL SIGNS: Reveal blood pressure this morning 156/58, pulse 63-73, respirations 20, O2 sat 94%-96 % on room air, temperature 98.2. GENERAL: This is a well-developed, well-nourished, very pleasant white female in no apparent distre ss at this time. HEENT: Reveals normocephalic, nontraumatic cranium. Pupils are equally round and reactive. Extrao cular movements intact. Nose and throat are still slightly dry, but clear. NECK: Supple, without masses, nodes or bruits. LUNGS: Chest is clear to auscultation. Breath sounds are noted be distant. No rales, no rhonchi, no wheezes are heard. The patient does have raspy cough, but she has a paralyzed vocal cord, has lo ts of secretions that she always coughs up. HEART: Regular rate and rhythm without murmurs, gallops or rubs. ABDOMEN: Slightly obese, soft, nontender. Normal bowel sounds are noted. GENITOURINARY: Exam deferred. EXTREMITIES: Reveal no clubbing, cyanosis or edema. IMPRESSION: 1. Chronic obstructive pulmonary disease with acute exacerbation. 2. Pulmonary emboli, presently on Lovenox 110 subcu daily and she will go home with that. 3. Chronic hypoxic respiratory failure followed by Dr. Alvarado. 4. [id number] normocytic anemia, unknown etiology, followed by Dr. Fofana. 5. Diabetes type 2, much better controlled. 6. 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 Silverio. 7. Multiple sclerosis. 8. Generalized weakness. 9. FULL CODE. PLAN: 1. Continue physical therapy and occupational therapy. 2. Continue pulmonary rehabilitation. 3. Continue stress ulcer prophylaxis. 4. Continue DVT prophylaxis with Lovenox 110 daily subcu. 5. Decubitus precautions. 6. Continue Accu-Cheks a.c. 7. Decrease Lantus to 46 units b.i.d. 8. Follow patient's blood pressure closely. 9. Discharge planning.
[2017-07-24] MEDS: Insulin Regular 300 UNITS/3 ML VIAL SC PRN (16:33)
[2017-07-24] MEDS: Cyclobenzaprine 10 MG TAB PO PRN (20:32)
[2017-07-24] MEDS: Acetaminophen 325 MG TAB PO PRN (20:33)
[2017-07-25 05:39] LABS: Hemoglobin 8.9 g/dL (12.0-16.0); Platelet Count 246 thou/uL (130-400)
[2017-07-25] MEDS: Enoxaparin Sodium 120 MG/0.8 ML SYRINGE SC SCH (08:40)
[2017-07-25] MEDS: Clopidogrel Bisulfate 75 MG TAB PO SCH (08:40)
[2017-07-25] MEDS: Amantadine HCl 100 mg Capsule PO SCH ×3 (08:40→21:09)
[2017-07-25] MEDS: Carvedilol 25 MG TAB PO SCH ×2 (08:40→21:08)
[2017-07-25] MEDS: Levemir Flexpen 100 UNITS/ML PEN SC SCH ×2 (08:41→21:08)
[2017-07-25] MEDS: Famotidine 20 MG TAB PO SCH ×2 (08:41→21:09)
[2017-07-25] MEDS: Gabapentin 300 MG CAP PO SCH ×3 (08:41→21:09)
[2017-07-25] MEDS: Cyclobenzaprine 10 MG TAB PO PRN ×2 (11:39→21:09)
[2017-07-25] MEDS: Acetaminophen 325 MG TAB PO PRN ×2 (11:39→21:09)
[2017-07-25] MEDS: Insulin Regular 300 UNITS/3 ML VIAL SC PRN (16:44)
--- NOTE | 2017-07-25 17:18 | PRG ---
DATE OF SERVICE: 07/25/2017. Ms. Khalil is a very pleasant 72-year-old white female that was admitted to [facility] w ith dyspnea, chronic hypoxemic respiratory failure, possible pulmonary emboli, hypertension, multipl e sclerosis, diabetes, chronic vocal cord paralysis, COPD, lung cancer. The patient was stabilized and seemed to be doing well and was transferred to [facility] for physical therapy, occupational therapy, and to adjust her sugars. PHYSICAL EXAMINATION: VITAL SIGNS: Blood pressure 130/59, pulse 65-74, respirations 18, O2 sat 95-96%, temperature 98.5. GENERAL: This is a well-developed, well-nourished, very pleasant white female, in no apparent distr ess at this time. HEENT: Reveals normocephalic, nontraumatic cranium. Pupils are equally round and reactive. Extrao cular movements intact. Nose and throat are slightly dry. NECK: Supple, without masses, nodes or bruits. LUNGS: Chest reveals shallow breath sounds and distant breath sounds. No rales, rhonchi or wheezes are heard. The patient has an occasional raspy cough mainly from lots of secretions in her paralyz ed vocal. HEART: Reveals a regular rate and rhythm without murmurs, gallops or rubs. ABDOMEN: Obese, soft, nontender, without organomegaly. Normal bowel sounds are noted. EXAM: Deferred. EXTREMITIES: Reveal no clubbing, cyanosis or edema. IMPRESSION: 1. Chronic obstructive pulmonary disease with acute exacerbation, much improved. 2. Pulmonary emboli, presently on Lovenox 110 mg subcu daily. 3. Chronic hypoxic respiratory failure followed by Dr. Alvarado. 4. Acute on chronic normocytic anemia. 5. Diabetes type 2, much improved, controlled. 6. Chronic cord paralysis secondary to the patient lung cancer followed by Dr. Silverio. 7. Multiple sclerosis. 8. Generalized weakness. 9. Full code. PLAN: 1. Continue physical therapy and occupational therapy. 2. We will continue pulmonary rehabilitation 3. Continue stress ulcer prophylaxis. 4. Continue DVT prophylaxis with Lovenox. 5. Continue decubitus precautions. 4. Continue Accu-Cheks a.c. and at bedtime. 5. Lantus has been decreased to 46 and a sugar this morning was 128 fasting. 6. Follow up patient's blood pressure closely. 7. Discharge planning.
[2017-07-26] MEDS: Levemir Flexpen 100 UNITS/ML PEN SC SCH ×2 (08:44→20:13)
[2017-07-26] MEDS: Clopidogrel Bisulfate 75 MG TAB PO SCH (08:46)
[2017-07-26] MEDS: Famotidine 20 MG TAB PO SCH ×2 (08:46→20:13)
[2017-07-26] MEDS: Amantadine HCl 100 mg Capsule PO SCH ×3 (08:46→20:14)
[2017-07-26] MEDS: Carvedilol 25 MG TAB PO SCH ×2 (08:46→20:14)
[2017-07-26] MEDS: Gabapentin 300 MG CAP PO SCH ×3 (08:46→20:14)
[2017-07-26] MEDS: Enoxaparin Sodium 120 MG/0.8 ML SYRINGE SC SCH (08:49)
[2017-07-26] MEDS: Insulin Regular 300 UNITS/3 ML VIAL SC PRN (16:53)
--- NOTE | 2017-07-26 17:10 | PRG ---
DATE OF SERVICE: 07/26/2017 DATE OF ADMISSION: 07/13/2017 SUBJECTIVE: Ms. Khalil is a very pleasant 72-year-old white female admitted to [facility] with dyspnea, chronic hypoxic respiratory therapy, pulmonary emboli, hypertension, multiple scleros is, diabetes, chronic vocal paralysis, COPD, and lung cancer. The patient was stabilized and did very well and was transferred to [facility] for p hysical therapy, occupational therapy, and adjusted her medications. Her sugar was completely out o f balance. PHYSICAL EXAMINATION: VITAL SIGNS: Today reveals blood pressure 123/54, pulse 62-82, respirations 16-18, O2 sat 97%-99% o n room air, temperature 98.2. When the patient starts walking around, she significantly desats down to 80s. Weight is 158 pounds and 12.8 ounces. GENERAL: This is a well-developed, well-nourished, very pleasant, slightly obese white female in no apparent distress at this time. HEENT: Reveals normocephalic, nontraumatic cranium. Pupils are equally round and reactive. Extrao cular movements intact. Nose and throat are somewhat dry but clear. NECK: Supple, without masses, nodes or bruits. CHEST: Has shallow breath sounds and distant breath sounds. No rales, rhonchi, wheezes or cough is heard. The patient has had raspy cough, seems better today. She does have lots of secretions from her vocal cords that usually cause her to cough, but she has not coughed in the room today. HEART: Reveals a regular rate and rhythm without murmurs, gallops or rubs. ABDOMEN: Slightly obese, soft, nontender, without organomegaly. Normal bowel sounds are noted. : Deferred. EXTREMITIES: Reveal no clubbing, cyanosis or edema. IMPRESSION: 1. Chronic obstructive pulmonary disease with acute exacerbation, much improved. 2. Pulmonary emboli, presently on Lovenox 10 mg subcu daily. 3. Chronic hypoxic respiratory failure followed by Dr. Alvarado. 4. Acute on chronic normocytic anemia. 5. Diabetes type 2, much improved. 6. Chronic cord paralysis secondary to the patient's lung cancer followed by Dr. Silverio. 7. Multiple sclerosis. 8. Generalized weakness. 9. FULL CODE. PLAN: 1. Continue physical therapy. 2. Continue stress ulcer prophylaxis. 3. Continue DVT prophylaxis with Lovenox 110 mg daily. 4. Continue decubitus precautions. 5. Accu-Cheks a.c. and at bedtime. 6. Lantus is presently at 46 units twice a day. 7. Continue to follow the patient's blood pressure. 8. Discharge planning for discharge, Monday. 9. The patient will be discharged with a prescription for pulmonary rehabilitation to follow.
[2017-07-26] MEDS: Cyclobenzaprine 10 MG TAB PO PRN (20:12)
[2017-07-26] MEDS: Acetaminophen 325 MG TAB PO PRN (20:13)
[2017-07-27 05:26] LABS: Hemoglobin 9.8 g/dL (12.0-16.0); Platelet Count 250 thou/uL (130-400)
[2017-07-27] MEDS: Enoxaparin Sodium 120 MG/0.8 ML SYRINGE SC SCH (08:37)
[2017-07-27] MEDS: Amantadine HCl 100 mg Capsule PO SCH ×3 (08:38→20:27)
[2017-07-27] MEDS: Clopidogrel Bisulfate 75 MG TAB PO SCH (08:38)
[2017-07-27] MEDS: Carvedilol 25 MG TAB PO SCH ×2 (08:38→20:27)
[2017-07-27] MEDS: Famotidine 20 MG TAB PO SCH ×2 (08:38→20:27)
[2017-07-27] MEDS: Gabapentin 300 MG CAP PO SCH ×3 (08:38→20:27)
[2017-07-27] MEDS: Levemir Flexpen 100 UNITS/ML PEN SC SCH ×2 (08:39→20:28)
--- NOTE | 2017-07-27 10:18 | PRG ---
DATE OF SERVICE: 07/27/2017 HISTORY: Ms. Khalil is a very pleasant 72-year-old white female with multiple medical problems. S he initially was seen at [facility] with chronic hypoxic respiratory failure, pulmonary emb kalani, hypertension, multiple sclerosis, chronic vocal cord paralysis, diabetes and a history of lung cancer. She was transferred to [facility] for physical therapy, occupational therapy, and fo r adjustment of her sugars. VITAL SIGNS: Today reveal blood pressure 132/60, pulse 69-76, respirations 16-18, O2 sat 96-98% at rest, temperature max 98.7. LABORATORY: Revealed hemoglobin 9.8, hematocrit 32.1, platelet count 250,000. Creatinine 1.13. GF R is 47. Accu-Cheks reveal yesterday morning fasting 92, before lunch 146, before supper 165, befor e bedtime 251, fasting this morning was 97. Patient did not get her evening bedtime sliding scale b ecause she did not have a snack. PHYSICAL EXAMINATION: GENERAL: This is a well-developed, well-nourished, very pleasant, slightly obese white female in no apparent distress at this time. HEENT: Reveals normocephalic, nontraumatic cranium. Pupils are equally round and reactive. Extrao cular movements intact. Nose and throat are slightly dry, but clear. NECK: Supple, without masses, nodes or bruits. LUNGS: Chest is clear to auscultation. No rales, no rhonchi, no wheezes are heard. Minimal cough is noted today. The patient does have shallow breaths and distant breath sounds. The patient evaristo nued to have lots of secretions, especially from her paralyzed vocal cord. CARDIOVASCULAR: Reveals a regular rate and rhythm without murmurs, gallops or rubs. ABDOMEN: Slightly obese, soft, nontender, without organomegaly. Normal bowel sounds are noted. : Deferred. EXTREMITIES: Reveal no clubbing, cyanosis or edema. IMPRESSION: 1. Chronic obstructive pulmonary disease with acute exacerbation, much improved. 2. Pulmonary emboli presently on Lovenox 110 mcg subcu daily. 3. Chronic hypoxic respiratory failure followed by Dr. Alvarado. 4. Acute on chronic normocytic anemia. 5. Diabetes type 2, much improved. 6. Chronic vocal cord paralysis secondary to patient's lung cancer followed by Dr. Silverio. 7. Multiple sclerosis. 8. Generalized weakness. 9. Full code. PLAN: 1. I did fill out the patient's pulmonary rehab papers request for her to start that. Will start w ith the next session. 2. Accu-Cheks a.c. and at bedtime. 3. Continue to monitor the patient's blood pressure. 4. Continue Lantus at 46 units twice a day and sliding scale, aggressive. 5. Continue PT and OT. 6. Continue stress ulcer prophylaxis. 7. Continue DVT prophylaxis with Lovenox 110. 8. Patient will go home on Lovenox 110 mg daily at [facility]. 9. Discharge tomorrow afternoon.
[2017-07-27] MEDS: Acetaminophen 325 MG TAB PO PRN ×2 (15:57→20:33)
[2017-07-27] MEDS: Insulin Regular 300 UNITS/3 ML VIAL SC PRN ×2 (17:12→20:28)
[2017-07-27] MEDS: diphenhydrAMINE HCl 25 MG CAP PO PRN (20:33)
[2017-07-28] MEDS: Insulin Regular 300 UNITS/3 ML VIAL SC PRN ×2 (06:26→11:23)
[2017-07-28 07:55] VITALS: TEMP 97.4
[2017-07-28] MEDS: Amantadine HCl 100 mg Capsule PO SCH ×2 (08:28→14:52)
[2017-07-28] MEDS: Carvedilol 25 MG TAB PO SCH (08:28)
[2017-07-28] MEDS: Clopidogrel Bisulfate 75 MG TAB PO SCH (08:28)
[2017-07-28] MEDS: Levemir Flexpen 100 UNITS/ML PEN SC SCH (08:29)
[2017-07-28] MEDS: Famotidine 20 MG TAB PO SCH (08:29)
[2017-07-28] MEDS: Gabapentin 300 MG CAP PO SCH ×2 (08:29→14:53)
[2017-07-28] MEDS: Enoxaparin Sodium 120 MG/0.8 ML SYRINGE SC SCH (08:29)
[2017-07-28 11:17] VITALS: BP 137/64
--- NOTE | 2017-07-28 18:34 | PRG ---
DATE OF SERVICE: 07/28/2017 DATE OF ADMISSION: 07/13/2017 HISTORY OF PRESENT ILLNES: Ms. Khalil is a very pleasant 72-year-old white female initially seen a [facility] with chronic hypoxic respiratory failure, pulmonary emboli, hypertension, mult iple sclerosis, chronic vocal cord paralysis, diabetes out of control and history of lung cancer. T he patient was transferred to [facility] for control of her sugars, physical therapy and occupational therapy. OBJECTIVE: VITAL SIGNS: Today reveal blood pressure 145/64, pulse 70-72, respirations 18-20, O2 sat 93%-96% on room air resting, temperature max 98.8. LABORATORY DATA: Laboratories today revealed sugars fasting yesterday morning 97, before lunch 80, before supper 178, before bedtime 233, fasting this morning for some reason was significantly elevat ed at 266. PHYSICAL EXAMINATION: GENERAL: Reveals a well-developed, well-nourished, pleasant white female, in no apparent distress a t this time. HEENT: Reveals normocephalic, nontraumatic cranium. Pupils equal, round, and reactive. Extraocula r movements intact. Nose and throat are slightly dry. NECK: Supple without masses, nodes or bruits. CHEST: Clear to auscultation, no rales, rhonchi or wheezes are heard, minimal cough is noted today. The patient does have some shallow breath sounds in the distant past. The patient continues to davis ve secretions, but are improved. The patient does have paralyzed vocal cord followed by Dr. Silverio. HEART: Reveals a regular rate and rhythm without murmurs, gallops or rubs. ABDOMEN: Soft, nontender, without organomegaly, normal bowel sounds are noted. No rebound or guard ing is noted. GENITOURINARY: Deferred. EXTREMITIES: Reveal no clubbing, cyanosis or edema. IMPRESSION: 1. Chronic obstructive pulmonary disease with acute exacerbation, much improved, followed by Dr. Cali mccartney. 2. Chronic hypoxic respiratory failure followed by Dr. Alvarado. 3. Acute on chronic normocytic anemia. 4. Diabetes type 2, much improved. 5. Chronic vocal cord paralysis secondary to patient's lung cancer surgery followed by Dr. Silverio. 6. Multiple sclerosis. 7. Generalized weakness. 8. FULL CODE. PLAN: 1. The patient has been referred to pulmonary rehabilitation, those papers have been done. 2. Patient is for discharge this afternoon. 3. We will continue to monitor the patient's blood pressure. 4. Continue Lantus at 46 units twice a day and aggressive sliding scale. 5. Continue physical therapy and occupational therapy. 6. Continue stress ulcer prophylaxis. 7. DVT prophylaxis with Lovenox 110 mg already been sent to [facility] that was supposed t o be arrive today. DISCHARGE MEDICATIONS: Will include the following, 1. Tylenol 650 p.r.n. 2. Amantadine 100 mg 3 times a day. 3. Coreg or carvedilol 25 mg b.i.d. 4. Plavix 75 mg daily. 5. Lovenox 110 mg subcu daily. 6. Gabapentin 300 mg 3 times a day. 7. Lantus 46 units subcutaneous b.i.d. 8. Humulin Regular on aggressive sliding scale, which means 150-200 mg give 3 units, 200-250 give 6 units, 250-300 give 9 units, 300-350 give 12 units, and greater than 350 give 15 units. 9. Crestor 20 mg every evening. 10. The patient has been given prescriptions for Lantus pen for 3-month supply and for Humalog R. The patient will see me within 1 or 2 weeks. I have spent more than 45 minutes discharging this patient.
== END 2017-07-28 16:00 | disposition home or self-care (01) | DRG 948 ==
LOC: NAV ACUTE 13:31
PROVIDERS: ADMIT Family Medicine; ATTEND Family Medicine
DX: R53.1 Weakness (principal); J96.11 Chronic respiratory failure with hypoxia; I27.82 Chronic pulmonary embolism; E11.65 Type 2 diabetes mellitus with hyperglycemia; D62 Acute posthemorrhagic anemia; J38.00 Paralysis of vocal cords and larynx, unspecified; J44.1 Chronic obstructive pulmonary disease with (acute) exacerbation; G35 Multiple sclerosis; Z79.4 Long term (current) use of insulin; I10 Essential (primary) hypertension; Z79.01 Long term (current) use of anticoagulants; I25.10 Atherosclerotic heart disease of native coronary artery without angina pectoris; Z95.5 Presence of coronary angioplasty implant and graft; I25.2 Old myocardial infarction; Z87.891 Personal history of nicotine dependence; Z86.73 Personal history of transient ischemic attack (TIA), and cerebral infarction without residual deficits; Z85.118 Personal history of other malignant neoplasm of bronchus and lung; D50.0 Iron deficiency anemia secondary to blood loss (chronic); E66.9 Obesity, unspecified; Z71.3 Dietary counseling and surveillance; Z68.28 Body mass index [BMI] 28.0-28.9, adult; Z23 Encounter for immunization
CPT/HCPCS: 36415; 36416; 80053; 82565; 85014; 85018; 85025; 85049; J1650; J1815

== ENCOUNTER 2017-08-14 17:50 | Inpatient (IN) | payer MEDICARE ==
[2017-08-14 19:07] VITALS: BMI 28.5
[2017-08-14] MEDS ORDERED: Acetaminophen 325 MG TAB PO PRN (20:20)
[2017-08-14] MEDS ORDERED: Dextrose 50% Abboject 50 ML SYRINGE SLOW IVP PRN (20:31)
[2017-08-14] MEDS ORDERED: Insulin Regular 300 UNITS/3 ML VIAL SC PRN (20:31)
[2017-08-14] MEDS ORDERED: Ondansetron ODT 4 MG TAB PO PRN (20:31)
[2017-08-14] MEDS ORDERED: Dextrose 5% in Water 1,000 ML IV PRN (20:31)
[2017-08-14] MEDS ORDERED: diphenhydrAMINE 25 MG CAP PO PRN (20:49)
[2017-08-14] MEDS ORDERED: Melatonin 3 MG TAB PO SCH (21:00)
[2017-08-14] MEDS: Docusate 100 MG CAP PO SCH (21:55)
[2017-08-14] MEDS: Amiodarone 200 MG TAB PO SCH (21:55)
[2017-08-14] MEDS: Famotidine 20 MG TAB PO SCH (21:55)
[2017-08-14] MEDS: Amantadine HCl 100 mg Capsule PO SCH (21:55)
[2017-08-14] MEDS: Gabapentin 300 MG CAP PO SCH (21:55)
[2017-08-14] MEDS: Carvedilol 25 MG TAB PO SCH (21:55)
[2017-08-14] MEDS: Levemir Flexpen 100 UNITS/ML PEN SC SCH (22:01)
[2017-08-14 23:17] LABS: Bilirubin Negative (Negative); Blood, Urine Trace (Negative); Clarity Clear (Clear); Glucose, Urine (Dipstick) 500 mg/dL (Negative); Leukocyte Small (Negative); Nitrite Positive (Negative); Protein, Urine (Dipstick) 30 mg/dL (Neg-Trace); Specific Gravity, Urine 1.015 (1.005-1.030); Urobilinogen 0.2 mg/dL (0.2-1.0)
[2017-08-14 23:18] LABS: Bacteria/HPF 4+ HPF (None Seen); RBC/HPF 0-3 HPF (0-3); Squamous Epithelial 0-3 HPF (0-3)
[2017-08-15 05:20] LABS: Hemoglobin 9.1 g/dL (12.0-16.0); Mean Corpuscular HGB CONC 32.6 g/dL (32.0-36.0); Mean Corpuscular Hemoglobin 31.5 pg (27.0-31.0); Mean Corpuscular Volume 96.5 fl (81.0-99.0); Mean Platelet Volume 7.9 fL (7.4-10.4); Platelet Count 251 thou/uL (130-400); RBC Distribution Width 12.7 % (11.5-14.5); White Blood Cell (WBC) Count 8.8 thou/uL (4.8-10.8)
[2017-08-15 05:21] LABS: Band 3 % (5-11); Eosinophils 3 % (0-10); Lymphocytes 16 % (21-51); MDiff Complete? YES; Monocytes 6 % (0-10); Neutrophil 71 % (42-75); PLT Morphology Comment Appears Adequate; RBC Morphology Normal
[2017-08-15 05:29] LABS: Anion Gap 12 mmol/L (10-20); BUN (Urea Nitrogen) 17 mg/dL (9.8-20.1); Calc. Creatinine Clearance 70 mL/min (70-130); Calcium 10.1 mg/dL (7.8-10.44); Carbon Dioxide 32 mmol/L (23-31); Chloride 95 mmol/L (98-107); Estimated GFR-MDRD 66; Glucose 100 mg/dL (83-110); Potassium 4.6 mmol/L (3.5-5.1); Sodium 134 mmol/L (136-145)
--- NOTE | 2017-08-15 08:40 | HP ---
DATE OF ADMISSION: 08/14/2017 DATE OF HISTORY AND PHYSICAL: 08/14/2017 HISTORY OF PRESENT ILLNESS: Ms. Khalil is a very pleasant 72-year-old white female with a history of lung cancer diagnosed in 09/2015. She had a lung resection of the right upper lobe. Unfortunate ly, the patient had some vocal cord damage thought to be secondary to that surgery. Dr. Silverio has been following the patient and unfortunately, she has had increased respiratory distress and history of pulmonary embolism contributing to shortness of breath. She was scheduled for tracheostomy, but prior to that, the patient was found to be in atrial fib/flutter. She was given IV Cardizem. Card iology was consulted and she eventually converted. She was transitioned back over to Lovenox and Dr Scot Silverio did do her tracheostomy, I believe on 08/09/2017. Postoperative, the patient has actually done very well and has become extremely short of breath whenever she does any activity. It was felt that she would benefit from physical therapy, occupational therapy, and speech therapy for several days. The patient was transferred to [facility] for physical therapy, occupational therapy, speech therapy, and continued care. PAST MEDICAL HISTORY: 1. Hypertension. 2. Multiple sclerosis. 3. Diabetes. 4. Stroke. 5. Left leg crush injury. 6. Acute on chronic normocytic anemia with questionable gastrointestinal bleed. 7. Chronic vocal cord paralysis with stridor. 8. Chronic obstructive pulmonary disease. 9. Lung cancer, status post chemotherapy by Dr. Gentile. 10. Lung resection by Dr. Petty. 11. History of multiple pulmonary emboli in the past, on chronic anticoagulation with Lovenox 110 m g daily. 12. Coronary artery disease, status post myocardial infarction with cardiac stents in the distant p ast. 13. Diabetes type 2, requiring insulin. PAST SURGICAL HISTORY: 1. Brain stent. 2. Appendectomy. 3. . 4. Hysterectomy with unilateral oophorectomy. 5. Knee surgery. 6. Ankle surgery. 7. Bilateral cataract surgery. 8. Left upper lobectomy secondary to adenocarcinoma of the lung by Dr. Petty. 9. Recent cardiac stent. 10. Endoscopy. 11. MediPort placement in the right chest wall. MEDICATIONS: Reveal the patient is presently on the followin. Plavix 75 mg a day. 2. Rosuvastatin 20 mg a day. 3. Tylenol 650 q.4 p.r.n. 4. Amantadine 1000 mg t.i.d. 5. Amiodarone 200 mg at bedtime. 6. Aspirin 81 mg a day. 7. Carvedilol 25 mg twice a day. 8. Vitamin B12 of 1000 mcg a day. 9. Colace 100 mg twice a day. 10. Lovenox 110 mg subcu daily. 11. Pepcid 20 mg twice a day. 12. Gabapentin 300 mg 3 times a day. 13. Glucagon p.r.n. hypoglycemia. 14. Stovall 5/325 q.4 hours p.r.n. severe pain. 15. Aggressive sliding scale Humulin R. 16. Bedtime sliding scale Humulin R. 17. Levemir 40 units subcutaneous each morning. 18. Levemir 32 units subcutaneously at bedtime. 19. Lactulose 20 grams daily p.r.n. 20. Losartan 100 mg daily. 21. Melatonin 9 mg at bedtime. 22. Zofran 4 mg q.6 p.r.n. 23. Benadryl 25 mg at bedtime p.r.n. insomnia. ALLERGIES: The patient is noted to be allergic to CRAB MEAT. FAMILY HISTORY: Reveals patient's father in his 80s of [place], but he also had diabetes. Patient' s mother at age 62 of suicide. She is bipolar. The patient has no brothers or sisters. Ian power has one son who is 42 and just started having diabetes. SOCIAL HISTORY: Reveals the patient lives near [place], and is . She denies any recent sm oking, but has a 60+ pack year smoking. She smoked for 40 years and smoked anywhere from 1-2 packs a day. Majority of the time close to 2 packs. The patient typically has 2 drinks of hard liquor ev camille evening, but has not had any since she has been in the hospital, the patient stopped smoking in 08/2015. REVIEW OF SYSTEMS: The patient has difficulty talking because of her recent trach. She is able to write and answer questions. She denies fever, chills, etc. Denies any significant rashes. Denies change in vision or hearing. Denies any ear, nose, or throat problems except for new tracheostomy b y Dr. Silverio. Denies any palpitations, although she did have atrial fib/flutter. She states her br eathing is much better and she is not near short of breath. She has noted no orthopnea. She has no wheezing today. She does have vocal cord paralysis from lung surgery on one side, but on the other side, is having problems. Denies any nausea, vomiting, constipation or diarrhea at this time. She does have a Tenorio catheter in place because she typically straight catheterized herself but was les ble to do at this time, she has retention. She does have increasing fatigue and she says extreme we akness. PHYSICAL EXAMINATION: GENERAL: Reveals a well-developed, well-nourished, very pleasant white female in no apparent distre ss at this time. HEENT: Reveals normocephalic, nontraumatic cranium. Pupils are equally round and reactive. Extrao cular movements intact. Nose and throat are slightly dry. Tracheostomy is noted in place which is suctioned. NECK: Supple, without masses, nodes or bruits. Tracheostomy is well secured. CHEST: Clear to auscultation. The patient has no significant stridor at this time. She has no nav rtness of breath. She has no wheezes. HEART: Reveals a regular rate and rhythm, which is rate controlled at this time. ABDOMEN: Obese, soft, nontender, without organomegaly. Normal bowel sounds are noted. No rebound or guarding is noted. : Reveals Tenorio catheter in place. EXTREMITIES: Reveal no clubbing, cyanosis with trace edema. Patient is oriented person, place, tiffany e, and situation. ASSESSMENT: 1. Recent permanent trach placed by Dr. Silverio on 08/09/2017. 2. Generalized weakness with patient barely able to stand. 3. Chronic pulmonary emboli. Presently on Lovenox 110 mg q.24 hours. 4. Chronic hypoxic respiratory failure followed by Dr. Hurt. 5. Permanent pacemaker placed. 6. Acute on chronic normocytic anemia. 7. Diabetes type 2 on Lantus and aggressive sliding scale. 8. Chronic vocal cord paralysis secondary to patient's lung surgery. 9. FULL CODE. 10. Multiple sclerosis. 11. Generalized weakness. PLAN: 1. The patient will have physical therapy and occupational therapy. 2. We will consult speech therapy. 3. Continued Lovenox 110 mcg daily. 4. Continue amiodarone 200 mg every evening. 5. Follow the patient's rate closely. 6. Follow the patient's blood pressure closely. 7. Continue Accu-Cheks a.c. and at bedtime. 8. Continue to follow the patient's blood pressure closely. 9. Continue to monitor the patient's respiratory status. 10. Stress ulcer prophylaxis. 11. Decubitus precautions. 12. Deep venous thrombosis prophylaxis. 13. Physical therapy and occupational therapy, and speech therapy.
[2017-08-15] MEDS: Levemir Flexpen 100 UNITS/ML PEN SC SCH ×2 (08:47→20:51)
[2017-08-15] MEDS: Enoxaparin Sodium 120 MG/0.8 ML SYRINGE SC SCH (09:45)
[2017-08-15] MEDS: Rosuvastatin 10 MG TAB PO SCH (09:45)
[2017-08-15] MEDS: Aspirin 81 mg Enteric Coated Tablet PO SCH (09:45)
[2017-08-15] MEDS: Cyanocobalamin (Vitamin B-12) 1,000 MCG TAB PO SCH (09:46)
[2017-08-15] MEDS: Amantadine HCl 100 mg Capsule PO SCH ×3 (09:46→20:50)
[2017-08-15] MEDS: Clopidogrel Bisulfate 75 MG TAB PO SCH (09:46)
[2017-08-15] MEDS: Losartan 25 MG TAB PO SCH (09:46)
[2017-08-15] MEDS: Carvedilol 25 MG TAB PO SCH ×2 (09:46→20:51)
[2017-08-15] MEDS: Docusate 100 MG CAP PO SCH ×2 (09:47→20:51)
[2017-08-15] MEDS: Gabapentin 300 MG CAP PO SCH ×3 (09:48→20:51)
--- NOTE | 2017-08-15 11:32 | PRG ---
DATE OF SERVICE: 08/15/2017 DATE OF ADMISSION: 08/14/2017 HISTORY OF PRESENT ILLNESS: Ms. Khalil is a 72-year-old white female with a recent permanent trach eostomy placed by Dr. Silverio at [facility]. She was transferred here f or physical therapy, occupational therapy, and speech therapy. The patient was admitted last night and is having no problems. Apparently, she did not get taught h ow to suction herself so we will do that while she is here. Patient had a urinalysis done which rev ealed urinary tract infection, so we will start her on some antibiotics today. PHYSICAL EXAMINATION: VITAL SIGNS: Today reveal blood pressure this morning was 166/95, which is a little high. Last nig ht, it was 155/66, pulse is 90-98, respirations 18-20, O2 sat is 93%-96% on blow-by. GENERAL: This is a well-developed, well-nourished, very pleasant, slightly obese white female in no apparent distress at this time. HEENT: Reveals normocephalic and nontraumatic cranium. Pupils are equally round and reactive. Ext raocular movements intact. Nose and throat are slightly dry. Trachea is midline and clean, it is w ell secured. LUNGS: Chest is clear to auscultation. No stridor is noted. No rales, rhonchi, wheezes or cough i s noted. HEART: Reveals regular rate and rhythm, rate controlled. ABDOMEN: Obese, soft, nontender, without organomegaly. Normal bowel sounds are noted. No rebound or guarding is noted. : Reveals Tenorio catheter still in place. Patient typically does in and out caths 4 times a day a t home. EXTREMITIES: Reveal no clubbing, cyanosis with trace edema. NEUROLOGIC: Patient is oriented to person, place, time, and situation. LABORATORY DATA: Reveals white count 8,000, hemoglobin 9.1, hematocrit 28.0, and platelet count 251 ,000. Sodium 134, potassium 4.6, chloride 95, carbon dioxide 32 with BUN 17, creatinine 0.85 and sugar thi s morning which is 85. Urinalysis reveals WBCs 11-20. ASSESSMENT: 1. Permanent tracheostomy placed by Dr. Silverio on 08/09/2017. 2. Generalized weakness. The patient is barely able to stand. 3. Chronic pulmonary emboli, presently on Lovenox 110 mg q.24. 4. Chronic hypoxic respiratory failure followed by Dr. Alvarado. 5. Permanent pacemaker placed. 6. Acute on chronic normocytic anemia. 7. Diabetes type 2 on Lantus and aggressive sliding scale. 8. Chronic vocal cord paralysis secondary to patient's lung surgery. 9. FULL CODE. 10. Multiple sclerosis. 11. Generalized weakness. PLAN: 1. Order a consult for speech therapy. 2. Continue Lovenox. 3. Continue amiodarone 200 mg every evening. 4. Follow the patient very closely. 5. Follow the patient's blood pressure closely. 6. Continue to follow Accu-Cheks a.c. and at bedtime. 7. Monitor the patient's respiratory status. 8. Stress ulcer prophylaxis. 9. Decubitus precautions. 10. Deep venous thrombosis prophylaxis. 11. Physical therapy and occupational therapy. 12. Speech Therapy.
[2017-08-15] MEDS ORDERED: Gabapentin 300 MG CAP ONE (15:23)
[2017-08-15] MEDS ORDERED: Amantadine HCl 100 mg Capsule ONE (15:23)
[2017-08-15] MEDS: Insulin Regular 300 UNITS/3 ML VIAL SC PRN (17:08)
[2017-08-15] MEDS: Amiodarone 200 MG TAB PO SCH (20:51)
[2017-08-15] MEDS: Famotidine 20 MG TAB PO SCH (20:51)
[2017-08-15] MEDS: Melatonin 3 MG TAB PO PRN (20:52)
[2017-08-15] MEDS: HYDROcodone/Acetaminophen 5/325 mg Tablet PO PRN (20:52)
[2017-08-16] MEDS: Levemir Flexpen 100 UNITS/ML PEN SC SCH ×2 (08:15→20:37)
[2017-08-16] MEDS: Docusate 100 MG CAP PO SCH ×2 (08:16→20:37)
[2017-08-16] MEDS: Amantadine HCl 100 mg Capsule PO SCH ×3 (08:16→20:36)
[2017-08-16] MEDS: Aspirin 81 mg Enteric Coated Tablet PO SCH (08:16)
[2017-08-16] MEDS: Cyanocobalamin (Vitamin B-12) 1,000 MCG TAB PO SCH (08:17)
[2017-08-16] MEDS: Carvedilol 25 MG TAB PO SCH ×2 (08:17→20:37)
[2017-08-16] MEDS: Clopidogrel Bisulfate 75 MG TAB PO SCH (08:17)
[2017-08-16] MEDS: Enoxaparin Sodium 120 MG/0.8 ML SYRINGE SC SCH (08:17)
[2017-08-16] MEDS: Losartan 25 MG TAB PO SCH (08:18)
[2017-08-16] MEDS: Gabapentin 300 MG CAP PO SCH ×3 (08:18→20:37)
[2017-08-16] MEDS: Rosuvastatin 10 MG TAB PO SCH (08:19)
[2017-08-16] MEDS: HYDROcodone/Acetaminophen 5/325 mg Tablet PO PRN ×3 (09:26→20:38)
--- NOTE | 2017-08-16 09:56 | PRG ---
DATE OF SERVICE: 08/16/2017 DATE OF ADMISSION: 08/14/2017 HISTORY OF PRESENT ILLNESS: Ms. Khalil is a very pleasant, slightly obese 72-year-old white female that had a tracheostomy placed at [facility]. She has been so weak that she davis s been unable to stand. She was transferred here for physical and occupational therapy, and speech therapy. Patient's speech therapist did call and stated that she was at risk for thin liquids, but patient re fused any other things. So we will cautiously give her thin liquids as she is able to tolerate. Th also asked for a speaking valve, but did not discuss speaking valves over at [facility] when they di d her trach. The speech therapist said she would bring one on and instruct her to have her start using it. Ms. Khalil states she had a good evening last night, she slept well and has no complaints today. PHYSICAL EXAMINATION: VITAL SIGNS: Today reveal blood pressure 149/69, pulse 82, respirations 20, O2 sat 95%. When she s tands up, her O2 sat goes down into the mid 80s. She was able to stand 32 seconds this morning and then 52 seconds according to physical therapy. GENERAL: This is a well-developed, well-nourished, slightly obese white female in no apparent distr ess at this time. HEENT: Reveals normocephalic and nontraumatic cranium. Pupils are equally round and reactive. Nos e and throat are dry. NECK: Reveals trachea is midline and clean and well secured. Suctioned well. Does not look red, s wollen or infected. LUNGS: Clear to auscultation. No stridor is noted. No rales, rhonchi or wheezes are noted. Rare cough is noted. HEART: Reveals a regular rate and rhythm without murmurs, gallops or rubs. It is rate controlled s jose antonio. ABDOMEN: Obese, soft, nontender, without organomegaly. Normal bowel sounds are noted. No rebound or guarding. GENITOURINARY: Reveals Tenorio catheter in place. The patient typically does in and out caths 4 time s a day. EXTREMITIES: Reveal no clubbing, cyanosis with trace edema. NEUROLOGIC: The patient is oriented to person, place, time, and her situation. LABORATORY DATA: Yesterday revealed white count 8,000 with hemoglobin 9.1, hematocrit 28.0, and saadia telet count 152,000. Sodium 134, potassium 4.6, chloride 95, carbon dioxide 32 with BUN of 17 and c reatinine 0.85. Her fasting sugars yesterday morning was 85; before lunch 185; before supper 266; b efore bedtime 196; and fasting this morning was 84. ASSESSMENT: 1. Permanent tracheostomy placed by Dr. Silverio on 08/09/2017. 2. Significant generalized weakness. Patient is able to stand today for 30 second and 50 seconds. 3. Chronic hypoxic respiratory failure followed by Dr. Alvarado. 4. Chronic pulmonary emboli, presently on Lovenox 110 mg q.24 hours. 5. Permanent pacemaker. 6. Acute on chronic normocytic anemia. 7. Diabetes type 2 on Lantus, aggressive sliding scale. 8. Chronic vocal cord paralysis secondary to patient's lung surgery. 9. FULL CODE. 10. Multiple sclerosis. 11. Generalized weakness. PLAN: 1. Appreciate speech therapy's consultation and they will bring her speaking valve tomorrow. 2. Continue amiodarone 200 mg every evening. 3. Continue Lovenox. 4. Continue present medications. 5. Monitor the patient's Accu-Cheks a.c. and at bedtime. 6. Monitor the patient's blood pressure closely. 7. Monitor the patient's respiratory status. 8. Stress ulcer prophylaxis. 9. Deep venous thrombosis prophylaxis with Lovenox. 10. Decubitus precautions. 11. Continue physical therapy and occupational therapy. 12. Continue speech therapy.
[2017-08-16] MEDS: Insulin Regular 300 UNITS/3 ML VIAL SC PRN ×2 (12:01→17:10)
[2017-08-16 19:47] VITALS: BP 140/63; TEMP 99.2
[2017-08-16] MEDS: Amiodarone 200 MG TAB PO SCH (20:36)
[2017-08-16] MEDS: Famotidine 20 MG TAB PO SCH (20:37)
[2017-08-16] MEDS: Melatonin 3 MG TAB PO PRN (20:38)
[2017-08-17] MEDS ORDERED: Sodium Chloride 0.9% 10 ML ONE (05:36)
[2017-08-17 05:50] LABS: #Basophils 0.1 thou/uL (0.0-0.2); #Eosinphils 0.1 thou/uL (0.0-0.7); #Lymphocytes 1.1 thou/uL (1.20-3.40); #Monocytes 1.3 thou/uL (0.11-0.59); #Neutrophils 8.9 thou/uL (1.40-6.50); %Basophils 1.1 % (0.0-1.0); %Eosinophils 0.5 % (0.0-10.0); %Lymphocytes 9.4 % (21.0-51.0); %Monocytes 11.3 % (0.0-10.0); %Neutrophils 77.7 % (42.0-75.0); Hemoglobin 8.7 g/dL (12.0-16.0); Mean Corpuscular HGB CONC 30.9 g/dL (32.0-36.0); Mean Corpuscular Hemoglobin 30.3 pg (27.0-31.0); Mean Corpuscular Volume 98.3 fl (81.0-99.0); Mean Platelet Volume 7.4 fL (7.4-10.4); Platelet Count 312 thou/uL (130-400); RBC Distribution Width 13.4 % (11.5-14.5); Red Blood Cell (RBC) Count 2.86 mill/uL (4.20-5.40); White Blood Cell (WBC) Count 11.4 thou/uL (4.8-10.8)
[2017-08-17 06:03] LABS: Anion Gap 13 mmol/L (10-20); BUN (Urea Nitrogen) 24 mg/dL (9.8-20.1); Calc. Creatinine Clearance 68 mL/min (70-130); Calcium 9.9 mg/dL (7.8-10.44); Carbon Dioxide 31 mmol/L (23-31); Chloride 96 mmol/L (98-107); Estimated GFR-MDRD 64; Glucose 156 mg/dL (83-110); Potassium 4.5 mmol/L (3.5-5.1); Sodium 135 mmol/L (136-145)
--- NOTE | 2017-08-18 04:33 | DIS ---
DATE OF ADMISSION: 08/14/2017 DATE OF DISCHARGE: Transfer to [facility] on 08/17/2017. HOSPITAL SUMMARY: Ms. Khalil is a very pleasant 72-year-old slightly obese white female who has davis d paralyzed vocal cords and was having significant problems with aspiration. She had a permanent tr acheostomy placed at [facility] by Dr. Silverio. She has been doing well until ea rly this morning, she had some difficulty with giving oxygen saturation up. She felt that she had s ome type of mucus plug or bleeding episode. The patient did have some bleeding around her trach and she was seen early this morning by the ER doctor when her oxygen saturations began to drop. She wa s declared a Code Green and was moved to the ER. She was placed on BiPAP and was begin to sat 100%. Because she had continued bleeding, some respiratory problems, and we have no respiratory therapy or bit tripoler in the hospital, patient was transferred to [facility] for increased care. She definitely needs a higher level of care. The patient was transferred to [facility] and seen by Dr. Matias Saab who felt that becaus e of her bleeding episode, she may have needed to be off her Lovenox. He felt that possibly instead of a mucous plus she may have had a blood clot that her trach with her bleeding. Nonetheless, the patient was eventually transferred to [place]. TRANSFER MEDICATIONS: Include the followin. Lovenox 110 mg subcu daily. 2. Plavix 75 mg daily. 3. Rosuvastatin 20 mg daily. 4. Aspirin 81 mg daily. 5. Amantadine 100 mg t.i.d. 6. Amiodarone 200 mg at bedtime. 7. Carvedilol 25 mg b.i.d. 8. Vitamin B12 of 1000 mg daily. 9. Colace 100 mg b.i.d. 10. Pepcid 20 mg b.i.d. 11. Gabapentin 300 mg 3 times daily. 12. Wolcott 5/325 q.4 hours p.r.n. for very severe pain. 13. Levemir 40 units subcu every morning. 14. Levemir 32 units subcu at bedtime. 15. Bedtime sliding scale with Humulin R. 16. Aggressive sliding scale before meals with Humulin R. 17. Lactulose 20 grams daily p.r.n. 18. Losartan 100 mg daily. 19. Melatonin 9 mg at bedtime. 20. Zofran 4 mg q.6 hours p.r.n. 21. Benadryl 25 at bedtime p.r.n. for insomnia. ASSESSMENT: 1. Recent permanent trach placed by Dr. Silverio on 08/09/2017. 2. Bleeding around the trach with possible blood clots. 3. Possible mucus plug, requiring vigorous suction with hypoxemia. 4. Chronic pulmonary emboli, present on Lovenox 110 subcu q.24 hours. 5. Chronic hypoxic respiratory therapy failure followed by Dr. Hurt. 6. Generalized weakness with the patient barely able to stand. 7. Permanent pacemaker placed. 8. Acute on chronic normocytic anemia. 9. Diabetes type 2, on Lantus and aggressive sliding scale. 10. Chronic vocal cord paralysis secondary to patient's lung surgery. 11. FULL CODE. 12. Multiple sclerosis. 13. Generalized weakness. PLAN: 1. The patient will be transferred to [facility] for higher level of care. 2. We will ask Pulmonology to see the patient in consultation. 3. Continue amiodarone 200 mg every evening. 4. Monitor the patient's blood pressure closely. 5. Monitor the patient's oxygen saturation closely. 6. Continue consult speech therapy. 7. Lovenox per Dr. Saab's expertise. 8. Continue Accu-Cheks a.c. and at bedtime. 9. Follow the patient's blood pressure closely. 10. Monitor the patient's respiratory status. 11. Stress ulcer prophylaxis. 12. Decubitus precaution. 13. Deep venous thrombosis prophylaxis. 14. Physical therapy, occupational therapy, and speech therapy. I spent more than 45 minutes on this discharge with this patient.
== END 2017-08-17 05:00 | disposition short-term general hospital (02) | DRG 155 ==
LOC: NAV ACUTE 17:50
PROVIDERS: ADMIT Family Medicine; ATTEND Family Medicine
DX: J38.00 Paralysis of vocal cords and larynx, unspecified (principal); J95.01 Hemorrhage from tracheostomy stoma; J96.11 Chronic respiratory failure with hypoxia; I27.82 Chronic pulmonary embolism; J44.9 Chronic obstructive pulmonary disease, unspecified; G35 Multiple sclerosis; I10 Essential (primary) hypertension; D64.9 Anemia, unspecified; T17.990A Other foreign object in respiratory tract, part unspecified in causing asphyxiation, initial encounter; E11.9 Type 2 diabetes mellitus without complications; I25.2 Old myocardial infarction; Z85.118 Personal history of other malignant neoplasm of bronchus and lung; Z86.73 Personal history of transient ischemic attack (TIA), and cerebral infarction without residual deficits; Z87.891 Personal history of nicotine dependence; Z90.710 Acquired absence of both cervix and uterus; Z90.721 Acquired absence of ovaries, unilateral; Z98.42 Cataract extraction status, left eye; Z98.41 Cataract extraction status, right eye; Z95.0 Presence of cardiac pacemaker; Z79.4 Long term (current) use of insulin; Z92.21 Personal history of antineoplastic chemotherapy; Z79.01 Long term (current) use of anticoagulants; E66.9 Obesity, unspecified; Z68.28 Body mass index [BMI] 28.0-28.9, adult
CPT/HCPCS: 36415; 36416; 80048; 81001; 85007; 85025; 85027; 87077; 87086; 87186; A4216; G8978-GP-CL; G8979-GP-CJ; G8996-GN-CN; G8997-GN-CM; J1642; J1650; J1815; J7620

== ENCOUNTER 2017-08-17 06:23 | Emergency (ER) | payer MEDICARE ==
[2017-08-17 06:39] LABS: pH (venous) 7.21 (7.35-7.45)
[2017-08-17 06:40] LABS: Hemoglobin (Hb) 9.4 g/dL (11.7-16.1)
[2017-08-17 06:46] LABS: CKMB 0.4 ng/mL (0-6.6); Troponin I Less than 0.010 ng/mL (< 0.028)
[2017-08-17 06:49] LABS: ALT (SGPT) 23 U/L (8-55); AST (SGOT) 18 U/L (5-34); Alkaline Phosphatase 81 U/L (40-150); Anion Gap 14 mmol/L (10-20); BUN (Urea Nitrogen) 24 mg/dL (9.8-20.1); Bilirubin, Total 0.2 mg/dL (0.2-1.2); CK (CPK) 58 U/L (29-168); Calc. Creatinine Clearance 0 mL/min (70-130); Carbon Dioxide 31 mmol/L (23-31); Chloride 96 mmol/L (98-107); Estimated GFR-MDRD 64; Globulin 3.2 g/dL (2.4-3.5); Glucose 158 mg/dL (83-110); Potassium 4.5 mmol/L (3.5-5.1); Protein, Total 6.2 g/dL (6.0-8.3); Sodium 136 mmol/L (136-145)
--- NOTE | 2017-08-17 08:14 | RAD ---
CHEST ONE VIEW: INDICATION: Shortness of breath. COMPARISON: Chest one view, 08/02/2017. FINDINGS: Port-A Cath is in place, the tip in good position. Tracheostomy tube is new. There are surgical cl ips in the mediastinum. There is a small airspace opacity in the left lung base and a small left effusion. IMPRESSION: Opacity at the left lung base with a small left effusion that may be infectious in nature versus chr onic changes. POS: GLADIS
== END 2017-08-17 08:20 | disposition short-term general hospital (02) ==
LOC: NAV ERS 06:23
DX: R06.03 Acute respiratory distress (principal); I25.2 Old myocardial infarction; E11.9 Type 2 diabetes mellitus without complications; E78.5 Hyperlipidemia, unspecified; J44.9 Chronic obstructive pulmonary disease, unspecified; Z87.891 Personal history of nicotine dependence; Z86.73 Personal history of transient ischemic attack (TIA), and cerebral infarction without residual deficits; Z86.718 Personal history of other venous thrombosis and embolism; Z79.82 Long term (current) use of aspirin; Z79.899 Other long term (current) drug therapy
CPT/HCPCS: 71010; 82550; 82553; 82805; 83605; 84484

== ENCOUNTER 2017-08-23 16:45 | Inpatient (IN) | payer MEDICARE ==
[2017-08-23] MEDS ORDERED: Dextrose 50% Abboject 50 ML SYRINGE FS PRN (19:45)
[2017-08-23] MEDS ORDERED: Acetaminophen 325 MG TAB PO PRN (19:45)
[2017-08-23] MEDS ORDERED: Milk Of Magnesia 30 ML UDCUP PO PRN (19:52)
[2017-08-23] MEDS ORDERED: Loperamide HCl 2 MG CAP PO PRN (19:52)
[2017-08-23] MEDS ORDERED: Ondansetron ODT 4 MG TAB PO PRN (19:52)
[2017-08-23] MEDS ORDERED: Dextrose 50% Abboject 50 ML SYRINGE SLOW IVP PRN ×3 (20:19→20:23)
[2017-08-23] MEDS ORDERED: Dextrose 5% in Water 1,000 ML IV PRN ×3 (20:19→20:23)
[2017-08-23] MEDS ORDERED: Non-Formulary Item 1 EACH (Insulin Detemir 100 Units/Ml [Levemir] 25 UNITS) SC SCH (21:00)
[2017-08-23] MEDS: Docusate 100 MG CAP PO SCH (21:04)
[2017-08-23] MEDS: Carvedilol 25 MG TAB PO SCH (21:04)
[2017-08-23] MEDS: Gabapentin 300 MG CAP PO SCH (21:05)
[2017-08-23] MEDS: Famotidine 20 MG TAB PO SCH (21:05)
[2017-08-23] MEDS: Amantadine HCl 100 mg Capsule PO SCH (21:05)
[2017-08-23] MEDS: Levemir Flexpen 100 UNITS/ML PEN SC SCH (21:07)
[2017-08-23] MEDS: HumaLOG 300 UNITS/3 ML VIAL SC PRN (21:11)
[2017-08-23] MEDS ORDERED: Melatonin 3 MG TAB PO SCH (22:00)
--- NOTE | 2017-08-24 04:35 | HP ---
DATE OF ADMISSION: 08/23/2017 DATE OF HISTORY AND PHYSCAL: 08/23/2017 HISTORY OF PRESENT ILLNESS: Ms. Khalil is a very pleasant 72-year-old white female that was recent ly at [facility] for physical therapy and occupational therapy. She did have bleedi ng around her new trach and developed a blood clot that was larger than her bronchus. She was trans ferred to [facility] noted to be suctioned out, eventually was stabilized. She was switche d over from Lovenox to Coumadin and now is on Coumadin, therapeutic at 3.0. The patient was eventually stabilized and transferred back down to [facility] for ysical therapy, occupational therapy, and speech therapy. Recent history reveals the patient unfortunately had to have a lobectomy secondary to lung cancer. For some reason, she had some vocal cord damage, thought to be 1 vocal cord, but eventually proved t o be 2. Dr. Silverio did a permanent tracheostomy because of the patient's respiratory problems. She has also had a problem with atrial fibrillation and flutter, had to be given Cardizem IV and eventu ally transitioned over to Lovenox. She eventually bled on that and was transferred back to [facility] and switched over to Coumadin now. Patient also has a significant history of pulmonary emboli and will be on lifetime anticoagulation and lifetime humidification with her trach. PAST MEDICAL HISTORY: 1. Pulmonary embolism. 2. Deep venous thrombosis. 3. Hypertension. 4. Multiple sclerosis. 5. Diabetes. 6. Stroke. 7. Left leg crush injury. 8. Acute on chronic normocytic anemia with a history of questionable GI bleed in the past. 9. Chronic vocal cord paralysis with stridor. 10. Chronic obstructive pulmonary disease. 11. Lung cancer, status post chemotherapy by Dr. Gentile and lung resection by Dr. Petty. 12. History of multiple pulmonary emboli in the past, on chronic anticoagulation of Coumadin 4 mg d aily. 13. Coronary artery disease, status post myocardial infarction with cardiac stents in the distant p ast. 14. Diabetes type 2, requiring insulin. PAST SURGICAL HISTORY: 1. Appendectomy. 2. . 3. Hysterectomy with unilateral oophorectomy. 4. Knee surgery. 5. Ankle surgery. 6. Bilateral cataract surgery. 7. Left upper lobectomy secondary to adenocarcinoma of lung done by Dr. Petty. 8. Recent cardiac stent. 9. Endoscopy. 10. MediPort placement in the right chest wall. MEDICATIONS: Reveal the patient is on the followin. Plavix 75 mg daily. 2. Levemir 25 units in the morning and 25 units at night. 3. Humalog 5 units subcu a.c. 4. Warfarin 4 mg daily. 5. Carvedilol 25 mg daily. 6. Losartan 100 mg daily. 7. Aspirin 81 mg daily. 8. Crestor 20 mg at bedtime. 9. Amantadine 100 mg 3 times daily. 10. Amiodarone 200 mg at bedtime. 11. Famotidine 20 mg b.i.d. 12. Gabapentin 300 mg t.i.d. 13. Lorazepam 1 mg q.i.d. p.r.n. 14. Tylenol 650 q.4 hours p.r.n. 15. D50 p.r.n. for hypoglycemia. 16. Colace 100 mg b.i.d. 17. Glucagon 1 mg IM p.r.n. hypoglycemic protocol. 18. DuoNeb 3 mL p.r.n. ALLERGIES: The patient is noted to be allergic to CRAB MEAT. FAMILY HISTORY: Reveals patient's father in his 80s of an [place], but also had diabetes. Patient' s mother at age 62 of suicide. She was bipolar. Patient has no brothers or sisters. Patient has one son who is 42, just started having diabetes. SOCIAL HISTORY: Reveals the patient lives near [place], and is . She denies any recent sm oking, but has a 60+ pack year history of smoking. She smoked for 40 years for 1-2 packs a day. Ma jority of the time was close to 2 packs. Patient has 2 drinks of liquor every evening, but has not had any since she has been in the hospital, patient stopped smoking 08/2015. REVIEW OF SYSTEMS: The patient denies fever, chills, or upper respiratory problems. The patient do es have a recent trach. She denies any headache. Denies any change in vision or hearing. Denies a ny ear, nose, or throat problems except for new tracheostomy. Denies any palpitations, chest pain, or atrial fibrillation or flutter. She denies any significant tachypnea. She states she is breathi ng much better, not near short of breath. She has no orthopnea. Does have occasional wheeze, usual ly is resolving with DuoNebs. Denies any nausea, vomiting, diarrhea or constipation. She does have a Tenorio catheter in place, but she usually self caths herself. Does have any increasing fatigue an d says extreme weakness. She can only stand with help. In previous hospitalization, she was walkin g. PHYSICAL EXAMINATION: GENERAL: Reveals a well-developed, well-nourished, very pleasant white female, in no apparent distr ess at this time. HEENT: Reveals normocephalic, nontraumatic cranium. Pupils are equal, round, and reactive. Extrao cular movements are intact. Nose and throat are slightly dry. NECK: Supple with tracheostomy, well secured, not bleeding. CHEST: Clear with occasional wheezes. She is not short of breath. She speaks well with the speaki ng tube. CARDIOVASCULAR: Reveals a regular rate and rhythm. Rate controlled. ABDOMEN: Obese, soft, nontender without organomegaly. Normal bowel sounds are noted. No rebound o r guarding is noted. GENITOURINARY: Reveals Tenorio catheter in place. EXTREMITIES: Reveal no clubbing, cyanosis, or edema. NEUROLOGIC: Patient is oriented to person, place, time, and situation. ASSESSMENT: 1. Recent permanent trach placed by Dr. Silverio on 08/09/2017. 2. Generalized weakness. The patient is barely able to stand and is helped to standing. 3. Chronic pulmonary emboli. Presently on Coumadin 4 mg daily. 4. Chronic hypoxic respiratory failure followed by Dr. Alvarado. 5. Permanent pacemaker. 6. Acute on chronic normocytic anemia. 7. Diabetes type 2. On Lantus 25 units and 5 units at each meal. 8. Chronic vocal cord paralysis secondary to patient's lung surgery and adenocarcinoma of the lung. 9. FULL CODE. 10. Multiple sclerosis. 11. Generalized weakness. PLAN: 1. The patient will start off with her speech therapy. 2. The patient will have physical therapy and occupational therapy. 3. The patient will continue on Coumadin 4 mg every night. 4. The patient will continue amiodarone 200 mg every evening. 5. Continue to follow the patient's blood pressure closely. 6. Follow the patient's Accu-Cheks a.c. and at bedtime. 7. Continue to monitor the patient's rate. 8. Monitor the patient's respiratory status. 9. Humidified air at all times. 10. Clean her trach at least twice a day and p.r.n. 11. Stress ulcer prophylaxis. 12. Decubitus precautions. 13. Deep venous thrombosis prophylaxis. 14. Continue to monitor this patient closely.
[2017-08-24 05:20] LABS: #Eosinphils 0.2 thou/uL (0.0-0.7); #Lymphocytes 1.1 thou/uL (1.20-3.40); #Monocytes 0.5 thou/uL (0.11-0.59); #Neutrophils 5.9 thou/uL (1.40-6.50); %Basophils 0.5 % (0.0-1.0); %Lymphocytes 14.4 % (21.0-51.0); %Monocytes 6.7 % (0.0-10.0); %Neutrophils 76.4 % (42.0-75.0); Hemoglobin 12.2 g/dL (12.0-16.0); Mean Corpuscular HGB CONC 30.4 g/dL (32.0-36.0); Mean Corpuscular Hemoglobin 29.6 pg (27.0-31.0); Mean Corpuscular Volume 97.2 fl (81.0-99.0); Mean Platelet Volume 6.4 fL (7.4-10.4); Platelet Count 288 thou/uL (130-400); RBC Distribution Width 14.1 % (11.5-14.5); Red Blood Cell (RBC) Count 4.14 mill/uL (4.20-5.40); White Blood Cell (WBC) Count 7.7 thou/uL (4.8-10.8)
[2017-08-24 05:40] LABS: ALT (SGPT) 26 U/L (8-55); AST (SGOT) 10 U/L (5-34); Albumin 2.7 g/dL (3.4-4.8); Alkaline Phosphatase 78 U/L (40-150); Anion Gap 13 mmol/L (10-20); BUN (Urea Nitrogen) 24 mg/dL (9.8-20.1); Bilirubin, Total 0.1 mg/dL (0.2-1.2); Calc. Creatinine Clearance 72 mL/min (70-130); Calcium 9.2 mg/dL (7.8-10.44); Carbon Dioxide 27 mmol/L (23-31); Chloride 102 mmol/L (98-107); Estimated GFR-MDRD 68; Globulin 2.2 g/dL (2.4-3.5); Glucose 187 mg/dL (83-110); Potassium 4.6 mmol/L (3.5-5.1); Protein, Total 4.9 g/dL (6.0-8.3); Sodium 137 mmol/L (136-145)
[2017-08-24] MEDS: HumaLOG 300 UNITS/3 ML VIAL SC PRN ×2 (06:03→21:53)
[2017-08-24] MEDS: HumaLOG 300 UNITS/3 ML VIAL SC SCH ×3 (07:48→17:13)
[2017-08-24 07:57] LABS: Prothrombin Time 23.3 SEC (12.0-14.7)
[2017-08-24] MEDS ORDERED: Non-Formulary Item 1 EACH (Insulin Detemir 100 Units/Ml [Levemir] 25 UNITS) SC SCH (08:00)
[2017-08-24 08:11] LABS: Bilirubin Negative (Negative); Blood, Urine Trace (Negative); Clarity Slightly Cloudy (Clear); Glucose, Urine (Dipstick) >=1000 mg/dL (Negative); Leukocyte Small (Negative); Nitrite Negative (Negative); Protein, Urine (Dipstick) Negative (Neg-Trace); Urobilinogen 0.2 mg/dL (0.2-1.0)
[2017-08-24] MEDS: Levemir Flexpen 100 UNITS/ML PEN SC SCH ×2 (08:15→21:50)
[2017-08-24] MEDS: Losartan Potassium 25 MG TAB PO SCH (08:16)
[2017-08-24] MEDS: Amantadine HCl 100 mg Capsule PO SCH ×3 (08:16→21:49)
[2017-08-24] MEDS: Docusate 100 MG CAP PO SCH ×2 (08:16→21:48)
[2017-08-24] MEDS: Carvedilol 25 MG TAB PO SCH ×2 (08:17→21:49)
[2017-08-24] MEDS: Gabapentin 300 MG CAP PO SCH ×3 (08:17→21:47)
[2017-08-24] MEDS: Famotidine 20 MG TAB PO SCH ×2 (08:17→21:49)
[2017-08-24] MEDS: Clopidogrel Bisulfate 75 MG TAB PO SCH (08:17)
[2017-08-24 08:21] LABS: RBC/HPF 0-3 HPF (0-3)
[2017-08-24 08:23] LABS: Bacteria/HPF Rare-Few HPF (None Seen); Other Microscopic Description NO; WBC/HPF 21-50 HPF (0-3); Yeast-All Forms Rare HPF (None Seen)
--- NOTE | 2017-08-24 10:35 | PRG ---
DATE OF SERVICE: 08/24/2017 HISTORY OF PRESENT ILLNESS: Ms. Khalil returned back to [facility] after being tra nsferred up there for a tracheostomy bleed. She was switched off her Lovenox and was switched over to Coumadin 5 mg daily. The patient was transferred here, because of her extreme weakness. She can barely stand without hel p. Three weeks ago, she was able to walk several feet. SUBJECTIVE: The patient states she is doing very well, but she needs to have her trach cleaned, the inner cannula cleaned at least twice a day and p.r.n. That has not been done yet. Urinalysis did reveal that she has urinary tract infection. Following her sugars reveal that her sugars were not well controlled. When she left here, she was o n Levemir 40 units in the morning and 32 units at night and when she returned, she is on 25 units b. i.d. Her sugars last night when she arrives were in 370s. We will move her up to the 30 units in t he morning and 35 units at night and advance that as tolerated. The patient states she is feeling very well this morning. She has no complaints. She is anxious to get started on her physical therapy. VITAL SIGNS: Reveal blood pressure 125/58, pulse 66-75, respirations 18-20, O2 sat 91%-92% on humid ified air, couple of liters blowing by her trach. Temperature max is 98.7. LABORATORY DATA: Reveals white count of 7700 with hemoglobin of 12.2, hematocrit 40.3, platelet cou nt 288,000. Patient's INR this morning was 2.0. Chemistry reveals sodium 137, potassium 4.5, chloride 102, carbon dioxide 27 with a creatinine 0.83. GFR is 62. Her sugar this morning is 172. We did give her some extra insulin last night. Urinalysis revealed 21-50 WBCs per high power field. We will start her on nitrofurantoin 50 mg q.i. d. for 10 days. PHYSICAL EXAMINATION: GENERAL: This is a well-developed, well-nourished, very pleasant, slightly obese white female in no apparent distress at this time. HEENT: Reveals normocephalic, nontraumatic cranium. Pupils are equally, round, reactive. Extraocu lar movements intact. Nose and throat are slightly dry. NECK: Supple, without masses, nodes or bruits. CHEST: Clear to auscultation. No rales, no rhonchi, no wheezes are heard. CARDIOVASCULAR: Heart reveals a regular rate and rhythm without murmurs, gallops or rubs. ABDOMEN: Obese, soft, nontender, without organomegaly. Normal bowel sounds are noted. No rebound or guarding is noted. GENITOURINARY: Deferred. The patient's Tenorio catheter is noted be out. EXTREMITIES: Reveal no clubbing, cyanosis or edema. ASSESSMENT: 1. Extreme weakness. The patient is unable to stand without help. 2. Permanent trach placed by Dr. Silverio. 3. Chronic pulmonary emboli, presently on Coumadin 4 mg daily for lifetime. 4. Chronic hypoxic respiratory failure followed by Dr. Alvarado. 5. Permanent pacemaker. 6. Acute on chronic normocytic anemia. 7. Diabetes type 2, increasing Lantus to 35 and 30. 8. 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 9. Multiple sclerosis. 10. Generalized weakness. 11. Coronary artery disease, status post myocardial infarction with stents in the past. 12. Prior stroke. 13. Hypertension. 14. History of deep venous thrombosis. PLAN: 1. Continue the patient with physical therapy and occupational therapy. 2. Continue speech therapy. 3. Continue Coumadin. Watch daily INRs. 4. Continue amiodarone. 5. Follow up blood pressure closely. 6. Follow up the patient's Accu-Cheks a.c. and at bedtime and adjust her Levemir as able. 7. Continue aggressive sliding scale and bedtime sliding scale. 8. Monitor the patient's heart rate. 9. Monitor the patient's respiratory status. 10. Clean her trach at least twice a day and p.r.n. 11. Humidified air all times. 12. Decubitus precautions. 13. Deep venous thrombosis prophylaxis. 14. Stress ulcer prophylaxis. 15. Watch the patient carefully. 16. Dr. Paola Otoole computer information science professor this weekend.
[2017-08-24] MEDS: Nitrofurantoin Macrocrystal 50 MG CAP PO SCH ×3 (13:18→21:48)
[2017-08-24] MEDS: Warfarin Sodium 2 MG TAB PO SCH (17:13)
[2017-08-24] MEDS: Melatonin 3 MG TAB PO SCH (21:51)
[2017-08-24] MEDS: Lorazepam 1 MG TAB PO PRN (21:56)
[2017-08-25] MEDS: HumaLOG 300 UNITS/3 ML VIAL SC SCH ×3 (08:16→17:09)
[2017-08-25] MEDS: Amantadine HCl 100 mg Capsule PO SCH ×3 (08:17→21:15)
[2017-08-25] MEDS: Docusate 100 MG CAP PO SCH ×2 (08:17→21:14)
[2017-08-25] MEDS: Levemir Flexpen 100 UNITS/ML PEN SC SCH ×3 (08:17→21:17)
[2017-08-25] MEDS: Losartan Potassium 25 MG TAB PO SCH (08:18)
[2017-08-25] MEDS: Clopidogrel Bisulfate 75 MG TAB PO SCH (08:18)
[2017-08-25] MEDS: Carvedilol 25 MG TAB PO SCH ×2 (08:18→21:15)
[2017-08-25] MEDS: Nitrofurantoin Macrocrystal 50 MG CAP PO SCH ×4 (08:18→21:15)
[2017-08-25] MEDS: Gabapentin 300 MG CAP PO SCH ×3 (08:18→21:15)
[2017-08-25] MEDS: Famotidine 20 MG TAB PO SCH ×2 (08:18→21:15)
--- NOTE | 2017-08-25 09:13 | PRG ---
DATE OF SERVICE: 08/25/2017 SUBJECTIVE: Ms. Khalil is doing well. Denies any complaints. She apparently wants to be on a p.o . intake with thin liquids. Speech has discussed with her during her past admission here to and the patient is aware of the risks. Speech Therapy is working with her, and anticipating starting her o n some VitalStim next week. I advised speech therapy to discuss that with Dr. Michael. The patient is doing well up in her chair, just finished her breakfast. Denies any complaints. OBJECTIVE: VITAL SIGNS: She is afebrile, heart rate 70, respirations 20, oxygen saturation 95% on 5 liters on a trach collar, blood pressure 119/55. CARDIOVASCULAR: S1, S2 plus. RESPIRATORY: Normal vesicular breath sounds. ABDOMEN: Soft, nontender, bowel sounds heard in all quadrants. EXTREMITIES: Without cyanosis or clubbing. Tracheostomy site is healthy. She has a speaking valve in place. LABORATORY VALUES: From yesterday, white count 7.7, H\T\H is 12.2 and 40.3. Sodium 137, potassium 4.6, BUN and creatinine 24 and 0.8. Blood sugars are 172, 266, 256, 341, 272 and 140. IMPRESSION: 1. Diabetes mellitus type 2. 2. Deconditioning. 3. Chronic pulmonary emboli. 4. Multiple sclerosis. 5. Hypertension. 6. Permanent tracheostomy placement. PLAN: 1. Continue tracheostomy care. 2. Monitor blood sugars and adjust medications. 3. Monitor INR. 4. Physical therapy. 5. Nutritional support. 6. DVT and stress ulcer prophylaxis. 7. Decubitus precautions. 8. Physical therapy. 9. No family at the bedside. 10. Discussed with the patient in detail and all questions answered.
[2017-08-25] MEDS: HumaLOG 300 UNITS/3 ML VIAL SC PRN ×3 (11:49→21:18)
[2017-08-25] MEDS: Warfarin Sodium 2 MG TAB PO SCH (17:08)
[2017-08-25] MEDS: Melatonin 3 MG TAB PO SCH (21:15)
[2017-08-25] MEDS: Lorazepam 1 MG TAB PO PRN (21:20)
[2017-08-26 05:26] LABS: INR-International Normal Ratio 2.1; Prothrombin Time 23.8 SEC (12.0-14.7)
[2017-08-26] MEDS: HumaLOG 300 UNITS/3 ML VIAL SC SCH ×3 (08:52→16:40)
[2017-08-26] MEDS: Carvedilol 25 MG TAB PO SCH ×2 (08:53→20:52)
[2017-08-26] MEDS: Amantadine HCl 100 mg Capsule PO SCH ×3 (08:53→20:53)
[2017-08-26] MEDS: Famotidine 20 MG TAB PO SCH ×2 (08:53→20:52)
[2017-08-26] MEDS: Docusate 100 MG CAP PO SCH ×2 (08:53→20:53)
[2017-08-26] MEDS: Clopidogrel Bisulfate 75 MG TAB PO SCH (08:53)
[2017-08-26] MEDS: Levemir Flexpen 100 UNITS/ML PEN SC SCH ×2 (08:54→20:54)
[2017-08-26] MEDS: Gabapentin 300 MG CAP PO SCH ×3 (08:54→20:53)
[2017-08-26] MEDS: Nitrofurantoin Macrocrystal 50 MG CAP PO SCH ×4 (08:55→20:53)
[2017-08-26] MEDS: Losartan Potassium 25 MG TAB PO SCH (08:55)
--- NOTE | 2017-08-26 09:57 | PRG ---
DATE OF SERVICE: 08/26/2017 SUBJECTIVE: Ms. Khalil is doing well. Denies any complaints, resting in bed. OBJECTIVE: VITAL SIGNS: She is afebrile, heart rate is 69, respirations 16, oxygen saturation is 100%, blood p ressure 150/62. CARDIOVASCULAR: S1, S2 plus. RESPIRATORY: Normal vesicular breath sounds with occasional rhonchi. ABDOMEN: Soft, nontender, bowel sounds heard in all quadrants. EXTREMITIES: Without cyanosis or clubbing. CENTRAL NERVOUS SYSTEM: Significant deconditioning, possibly related to her multiple sclerosis. IMPRESSION: 1. Permanent tracheostomy placement. 2. Dysphagia. 3. Chronic pulmonary emboli. 4. Multiple sclerosis. 5. Hypertension, well controlled. 6. Diabetes mellitus type 2. PLAN: 1. Continue current medications. 2. 1800 calorie Heart healthy ADA diet. 3. Accu-Cheks with sliding scale coverage. 4. Check PT/INR on her warfarin. 5. Tracheostomy care. 6. Titrate oxygen. 7. Physical therapy. 8. Discussed with patient in detail and all questions answered.
[2017-08-26] MEDS: HumaLOG 300 UNITS/3 ML VIAL SC PRN ×3 (11:27→20:53)
[2017-08-26] MEDS: Warfarin Sodium 2 MG TAB PO SCH (16:40)
[2017-08-26] MEDS: Lorazepam 1 MG TAB PO PRN (20:53)
[2017-08-26] MEDS: Melatonin 3 MG TAB PO SCH (20:53)
[2017-08-27 04:00] VITALS: BMI 27.8
[2017-08-27 05:17] LABS: INR-International Normal Ratio 2.7; Prothrombin Time 29.9 SEC (12.0-14.7)
[2017-08-27] MEDS: HumaLOG 300 UNITS/3 ML VIAL SC PRN ×3 (05:25→17:13)
[2017-08-27] MEDS: HumaLOG 300 UNITS/3 ML VIAL SC SCH ×3 (08:28→17:13)
[2017-08-27] MEDS: Docusate 100 MG CAP PO SCH ×2 (08:29→21:12)
[2017-08-27] MEDS: Carvedilol 25 MG TAB PO SCH ×2 (08:29→21:12)
[2017-08-27] MEDS: Amantadine HCl 100 mg Capsule PO SCH ×3 (08:29→21:12)
[2017-08-27] MEDS: Clopidogrel Bisulfate 75 MG TAB PO SCH (08:29)
[2017-08-27] MEDS: Levemir Flexpen 100 UNITS/ML PEN SC SCH ×2 (08:30→21:13)
[2017-08-27] MEDS: Famotidine 20 MG TAB PO SCH ×2 (08:30→21:21)
[2017-08-27] MEDS: Gabapentin 300 MG CAP PO SCH ×3 (08:30→21:12)
[2017-08-27] MEDS: Losartan Potassium 25 MG TAB PO SCH (08:31)
[2017-08-27] MEDS: Nitrofurantoin Macrocrystal 50 MG CAP PO SCH ×4 (08:31→21:12)
--- NOTE | 2017-08-27 16:04 | PRG ---
DATE OF SERVICE: 08/27/2017 SUBJECTIVE: Ms. Khalil is doing well. Denies any complaints. She is tolerating her trach collar. Discussed with nursing and no concerns. OBJECTIVE: VITAL SIGNS: She is afebrile, heart rate 71, respirations 16, oxygen saturation 99%, blood pressure is 118/56. CARDIOVASCULAR SYSTEM: S1, S2 plus. RESPIRATORY SYSTEM: Normal vesicular breath sounds. ABDOMEN: Soft, nontender, bowel sounds heard in all quadrants. EXTREMITIES: Without cyanosis or clubbing. Tracheostomy site is healthy. IMPRESSION: 1. Status post permanent tracheostomy. 2. Multiple sclerosis. 3. Hypoxemia. 4. Deconditioning. 5. Chronic pulmonary emboli. 6. Diabetes mellitus, type 2. 7. Hypertension. PLAN: 1. Continue current medications. 2. A 1800 calorie heart healthy diet. 3. Accu-Cheks with sliding scale coverage. 4. Tracheostomy care. 5. Titrate oxygen. 6. DVT and stress ulcer prophylaxis. 7. Decubitus precautions. 8. Monitor INR. Her last INR level this morning was 2.7. Dr. Fernando Michael will assume care at 9:00 p.m. today.
[2017-08-27] MEDS: Warfarin Sodium 2 MG TAB PO SCH (17:14)
[2017-08-27] MEDS: Lorazepam 1 MG TAB PO PRN (21:13)
[2017-08-27] MEDS: Melatonin 3 MG TAB PO SCH (21:13)
[2017-08-28 05:30] LABS: INR-International Normal Ratio 3.3
[2017-08-28] MEDS: HumaLOG 300 UNITS/3 ML VIAL SC PRN ×3 (05:43→16:56)
[2017-08-28] MEDS: Amantadine HCl 100 mg Capsule PO SCH ×3 (09:02→20:32)
[2017-08-28] MEDS: Docusate 100 MG CAP PO SCH ×2 (09:02→20:32)
[2017-08-28] MEDS: Nitrofurantoin Macrocrystal 50 MG CAP PO SCH ×4 (09:02→20:33)
[2017-08-28] MEDS: Losartan Potassium 25 MG TAB PO SCH (09:03)
[2017-08-28] MEDS: Gabapentin 300 MG CAP PO SCH ×3 (09:03→20:32)
[2017-08-28] MEDS: Famotidine 20 MG TAB PO SCH ×2 (09:03→20:32)
[2017-08-28] MEDS: Clopidogrel Bisulfate 75 MG TAB PO SCH (09:03)
[2017-08-28] MEDS: Carvedilol 25 MG TAB PO SCH ×2 (09:03→20:32)
[2017-08-28] MEDS: HumaLOG 300 UNITS/3 ML VIAL SC SCH ×3 (09:04→16:55)
[2017-08-28] MEDS: Levemir Flexpen 100 UNITS/ML PEN SC SCH ×2 (09:05→20:32)
--- NOTE | 2017-08-28 10:42 | PRG ---
DATE OF SERVICE: 08/28/2017 SUBJECTIVE: Ms. Khalil is a very pleasant 72-year-old white female transferred here after having a permanent trach. She ended up having a bleed and had to be transferred back to [place] where th ey switched off her Lovenox over to Coumadin 5 mg a day. She is now on 4 mg a day and her this morn ing is 3.3. We will hold it tonight. Patient was transferred here because of extreme weakness. She states she can still barely stand, bu t has therapy to start again today. SUBJECTIVE: The patient states she is doing well. She is eating well. She had little problems swa llowing, but she is working on that with her Speech Therapy also. The patient's sugars are still slightly high, we will increase her Levemir. Otherwise, patient has no complaints. PHYSICAL EXAMINATION: VITAL SIGNS: Reveal blood pressure is 118/56, pulse 70-84, respirations 18-22, and O2 sat 97%-100% on 5 liters. GENERAL: This is a well-developed, well-nourished, slightly obese white female in no apparent distr ess at this time. HEENT: Reveals normocephalic and nontraumatic cranium. Pupils are equally round and reactive. Ext raocular movements intact. Nose and throat are slightly dry. NECK: Supple without masses, nodes or bruits. LUNGS: Chest is clear to auscultation. No rales, rhonchi or wheezes are heard. CARDIOVASCULAR: Reveals a regular rate and rhythm without murmurs, gallops or rubs. ABDOMEN: Obese, soft, nontender, without organomegaly. Normal bowel sounds are noted. No rebound or guarding is noted. GENITOURINARY: Deferred. EXTREMITIES: Reveal no clubbing, cyanosis or edema. LABORATORY DATA: Her labs this morning revealed her INR was 3.3. We will hold her Coumadin today. Her Accu-Cheks reveal sugar this morning fasting 189. We will keep her evening Levemir at 35 and b ump her morning Levemir to 38 units. ASSESSMENT: 1. Primary tracheostomy placed by Dr. Silverio. 2. Chronic pulmonary emboli, presently on Coumadin 4 mg daily for lifetime. 3. Chronic hypoxic respiratory failure, followed by Dr. Alvarado. 4. Permanent pacemaker. 5. Acute on chronic normocytic anemia. 6. Diabetes, presently on insulin 35 at night and 38 in the morning. 7. Chronic vocal cord paralysis secondary to patient's lung surgery and adenocarcinoma of the lung. 8. Multiple sclerosis. 9. Coronary artery disease, status post myocardial infarction with stents in the past. 10. Prior stroke. 11. Hypertension. 12. History of deep venous thrombosis. 13. Generalized weakness. PLAN: 1. Continue physical therapy, occupational therapy, and speech therapy. 2. Continue Coumadin and hold Coumadin tonight. Watch daily INRs. 3. Continue amiodarone. 4. Follow blood pressure closely. 5. Follow Accu-Cheks a.c. and at bedtime and adjust as needed. 6. Continue aggressive sliding scale on bedtime scale. 7. Monitor the patient's heart rate. 8. Monitor the patient's respiratory status. 9. Clean the trachea at least twice a day and p.r.n. 10. Humidified air at all times. 11. DVT thrombosis prophylaxis with Coumadin. 12. Decubitus precautions. 13. Stress ulcer precautions. 14. Watch the patient carefully.
[2017-08-28] MEDS ORDERED: Warfarin Sodium 2 MG TAB PO SCH (17:00)
[2017-08-28] MEDS: Melatonin 3 MG TAB PO SCH (20:33)
[2017-08-28] MEDS: Lorazepam 1 MG TAB PO PRN (22:26)
[2017-08-29 05:40] LABS: Prothrombin Time 44.1 SEC (12.0-14.7)
[2017-08-29 06:00] LABS: INR-International Normal Ratio 4.4
[2017-08-29] MEDS: HumaLOG 300 UNITS/3 ML VIAL SC PRN ×4 (07:43→20:39)
[2017-08-29] MEDS: HumaLOG 300 UNITS/3 ML VIAL SC SCH ×3 (07:43→16:45)
[2017-08-29] MEDS: Losartan Potassium 25 MG TAB PO SCH (08:53)
[2017-08-29] MEDS: Gabapentin 300 MG CAP PO SCH ×3 (08:54→20:37)
[2017-08-29] MEDS: Famotidine 20 MG TAB PO SCH ×2 (08:54→20:37)
[2017-08-29] MEDS: Carvedilol 25 MG TAB PO SCH (08:54)
[2017-08-29] MEDS: Clopidogrel Bisulfate 75 MG TAB PO SCH (08:54)
[2017-08-29] MEDS: Nitrofurantoin Macrocrystal 50 MG CAP PO SCH ×4 (08:54→20:38)
[2017-08-29] MEDS: Docusate 100 MG CAP PO SCH ×2 (08:54→20:37)
[2017-08-29] MEDS: Amantadine HCl 100 mg Capsule PO SCH ×3 (08:54→20:36)
[2017-08-29] MEDS: Levemir Flexpen 100 UNITS/ML PEN SC SCH ×2 (08:55→20:37)
--- NOTE | 2017-08-29 14:26 | PRG ---
DATE OF SERVICE: 08/29/2017 HISTORY OF PRESENT ILLNESS: Ms. Khalil is very pleasant 72-year-old white female with a permanent tracheostomy. She had to have this because of paralyzed vocal cord secondary to adenocarcinoma of t he lung surgery. The patient recently had a bleed around her trachea and was transferred to [facility]. The y switched her off her Lovenox on to Coumadin and she is presently on 4 mg a day, but her INR was el evated yesterday at 3.3 and this morning is 4.4. We did hold her Coumadin yesterday and we will con tinue to hold it today. She understands her INR is high and we will most likely restart her at 2-1/ 2 to 3 mg when her Coumadin normalizes again. The patient has no complaints today except she just feels a little off every morning after breakfast . She has no other meals that happens at. She says it is not nauseated, it is not a cough, it is j ust strange feeling. PHYSICAL EXAMINATION: VITAL SIGNS: Reveal blood pressure today is 121/60, pulse 69-71, respirations 18, O2 sat 98-100% on 5 liters, temperature 98.1. GENERAL: Reveals a well-developed, well-nourished, slightly obese white female in no apparent distr ess at this time. HEENT: Reveals normocephalic, nontraumatic cranium. Pupils are equally round and reactive. Extrao cular movements intact. Nose and throat are slightly dry. NECK: Supple, without masses, nodes or bruits. CHEST: Clear to auscultation. No rales, rhonchi or wheezes are heard. CARDIOVASCULAR: Reveals a regular rate and rhythm without murmurs, gallops or rubs. ABDOMEN: Obese, soft, nontender, without organomegaly. Normal bowel sounds are noted. No rebound or guarding is noted. : Deferred. EXTREMITIES: Reveal no clubbing, cyanosis or edema. LABORATORY DATA: This morning reveals her INR was 4.4. We will hold her Coumadin again. Her sugar s reveal fasting 189, before lunch 296, before supper 192, before bedtime 212. We did increase her Levemir yesterday and we will watch her blood sugars a little closer. The patient and I did talk about her DNR status. She states, if there is something we can do to cor rect , then she would like to do that if she has like a big stroke or a big heart attack and th ere is nothing to do then do not resuscitate, otherwise this is a full resuscitation. ASSESSMENT: 1. Permanent tracheostomy done by Dr. Silverio. 2. Chronic pulmonary emboli, presently her Coumadin is on hold. She will be on Coumadin for lifeti me. 3. Chronic hypoxic respiratory failure, followed by Dr. Alvarado. 4. Permanent pacemaker. 5. Acute on chronic normocytic anemia. 6. Diabetes, presently on insulin 35 at night, 38 in the morning. 7. Vocal cord paralysis secondary to patient's lung surgery and adenocarcinoma of the lung. 8. Multiple sclerosis. 9. Coronary artery disease status post RI with stents in the past. 10. Prior stroke. 11. Hypertension. 12. History of deep venous thrombosis. 13. Generalized weakness. PLAN: 1. Hold Coumadin at this time. Continue to follow daily INRs. 2. Continue amiodarone. 3. Follow blood pressure closely. 4. Follow Accu-Cheks a.c. and at bedtime and adjust Levemir as needed. 5. Continue aggressive sliding scale. 6. Monitor the patient's heart rate. 7. Monitor the patient's respiratory status. 8. Clean the trach at least twice a day and p.r.n. 9. Humidified air at all times. 10. DVT thrombosis with Coumadin. 11. Decubitus precautions. 12. Stress ulcer precautions. 13. Watch the patient carefully. 14. Continue physical therapy and occupational therapy, and speech therapy.
[2017-08-29] MEDS ORDERED: Sodium Chloride 0.9% 500 ML IVPB SCH (16:30)
[2017-08-29] MEDS: Carvedilol 6.25 MG TAB PO SCH (20:36)
[2017-08-29] MEDS: Melatonin 3 MG TAB PO SCH (20:37)
[2017-08-29] MEDS: Lorazepam 1 MG TAB PO PRN (20:39)
[2017-08-30 05:21] LABS: INR-International Normal Ratio 3.9; Prothrombin Time 40.4 SEC (12.0-14.7)
[2017-08-30] MEDS: HumaLOG 300 UNITS/3 ML VIAL SC SCH ×3 (07:40→17:30)
[2017-08-30] MEDS: Amantadine HCl 100 mg Capsule PO SCH ×3 (07:41→21:24)
[2017-08-30] MEDS: Carvedilol 6.25 MG TAB PO SCH ×2 (07:41→21:24)
[2017-08-30] MEDS: Clopidogrel Bisulfate 75 MG TAB PO SCH (07:41)
[2017-08-30] MEDS: Famotidine 20 MG TAB PO SCH ×2 (07:42→21:25)
[2017-08-30] MEDS: Docusate 100 MG CAP PO SCH ×2 (07:42→21:25)
[2017-08-30] MEDS: Levemir Flexpen 100 UNITS/ML PEN SC SCH ×3 (07:42→21:27)
[2017-08-30] MEDS: Gabapentin 300 MG CAP PO SCH ×3 (07:42→21:25)
[2017-08-30] MEDS: Nitrofurantoin Macrocrystal 50 MG CAP PO SCH ×4 (07:43→21:25)
[2017-08-30] MEDS: Losartan Potassium 25 MG TAB PO SCH (07:43)
--- NOTE | 2017-08-30 10:31 | PRG ---
DATE OF SERVICE: 08/30/2017 HISTORY OF PRESENT ILLNESS: Ms. Khalil is a 72-year-old very pleasant white female that unfortunate ly had carcinoma of the lung. She had a lobectomy done which paralyzed one of her vocal cords. She has had some significant respiratory distress and eventually was taken to the surgical suite and had a permanent tracheostomy done. She is still here and has a significant history of pulmonary emboli a nd therefore she is anticoagulated presently with Coumadin. She is supratherapeutic at 4.4 yesterday . I have heard that her INR is about 3.4, but they are not exactly sure. They note it is in the 3s this morning. SUBJECTIVE: The patient states she has no complaints today. She states she feels really weak and ye sterday she did not have a good day, but hopefully she will do better today. She is not eating reall y well. We are going to encourage her to eat better and continue with speech therapy which she had t his morning. VITAL SIGNS: Vital signs are unavailable since the computers are down. PHYSICAL EXAMINATION: GENERAL: Reveals a well-developed, well-nourished, slightly obese white female in no apparent distre ss at this time. HEENT: Reveals normocephalic, nontraumatic cranium. Pupils are equally round and reactive. Extraoc ular movements intact. Nose and throat are slightly dry, but clear. Tracheostomy is clear. She has some upper respiratory sounds seem to clear a little bit better with her cough She has difficulty w ith clearing secretions at times. CHEST: Reveals no rales or rhonchi today. She does have occasional cough. HEART: Regular rate and rhythm without murmurs, gallops or rubs. ABDOMEN: Obese, soft, nontender, without organomegaly. Normal bowel sounds are noted. No rebound o r guarding is noted. : Deferred. EXTREMITIES: Reveal no clubbing, cyanosis with trace edema. IMPRESSION: 1. Permanent tracheostomy secondary to vocal cord paralysis. 2. Generalized deconditioning. 3. Hypoxic respiratory distress followed by Dr. Davidson. 4. Coronary artery disease. 5. Recent myocardial infarction. 6. Recent trach. 7. Generalized weakness. PLAN: 1. Continue physical therapy and occupational therapy. 2. DVT prophylaxis. 3. Stress ulcer prophylaxis. 4. The patient's supratherapeutic INR is being followed. We will restart her Coumadin most likely a lower dose when she gets to an INR of 3.[address] 5[address] Perez or Dr. Tripathi will be following this patient while I am gone over the next 4 days.
[2017-08-30] MEDS: HumaLOG 300 UNITS/3 ML VIAL SC PRN ×3 (11:45→21:27)
[2017-08-30] MEDS: Melatonin 3 MG TAB PO SCH (21:25)
[2017-08-30] MEDS: Lorazepam 1 MG TAB PO PRN (21:26)
[2017-08-31 08:07] LABS: INR-International Normal Ratio 2.6; Prothrombin Time 28.8 SEC (12.0-14.7)
[2017-08-31 08:34] LABS: Anion Gap 15 mmol/L (10-20); BUN (Urea Nitrogen) 64 mg/dL (9.8-20.1); Calc. Creatinine Clearance 53 mL/min (70-130); Calcium 9.2 mg/dL (7.8-10.44); Carbon Dioxide 26 mmol/L (23-31); Chloride 103 mmol/L (98-107); Estimated GFR-MDRD 49; Glucose 314 mg/dL (83-110); Sodium 139 mmol/L (136-145)
[2017-08-31 09:06] LABS: Anisocytosis MODERATE=16-30 cells (100X) (0-5/hpf); Band 2 % (5-11); Eosinophils 1 % (0-10); Hypochromia MODERATE=16-30 cells (100X) (0-5/hpf); Lymphocytes 11 % (21-51); MDiff Complete? YES; Macrocytosis SLIGHT = 6-15 cells (100X) (0-5/hpf); Mean Corpuscular HGB CONC 31.1 g/dL (32.0-36.0); Mean Corpuscular Hemoglobin 31.1 pg (27.0-31.0); Mean Platelet Volume 6.7 fL (7.4-10.4); Monocytes 1 % (0-10); Neutrophil 85 % (42-75); Nucleated RBC 1 % (0); PLT Morphology Comment Appears Adequate; Platelet Count 290 thou/uL (130-400); RBC Distribution Width 16.6 % (11.5-14.5)
[2017-08-31] MEDS: HumaLOG 300 UNITS/3 ML VIAL SC SCH ×3 (09:11→17:10)
[2017-08-31] MEDS: Levemir Flexpen 100 UNITS/ML PEN SC SCH ×2 (09:12→21:54)
[2017-08-31] MEDS: Famotidine 20 MG TAB PO SCH ×2 (09:14→21:50)
[2017-08-31] MEDS: Docusate 100 MG CAP PO SCH ×2 (09:14→21:50)
[2017-08-31] MEDS: Gabapentin 300 MG CAP PO SCH ×3 (09:14→21:49)
[2017-08-31] MEDS: Amantadine HCl 100 mg Capsule PO SCH ×3 (09:15→21:49)
[2017-08-31] MEDS: Losartan Potassium 25 MG TAB PO SCH (09:15)
[2017-08-31] MEDS: Carvedilol 6.25 MG TAB PO SCH ×2 (09:15→21:52)
[2017-08-31] MEDS: Nitrofurantoin Macrocrystal 50 MG CAP PO SCH ×4 (09:15→21:50)
[2017-08-31] MEDS: Clopidogrel Bisulfate 75 MG TAB PO SCH (09:15)
[2017-08-31 09:20] LABS: White Blood Cell (WBC) Count 16.7 thou/uL (4.8-10.8)
[2017-08-31] MEDS: Pantoprazole 40 MG VIAL IVP SCH (09:22)
--- NOTE | 2017-08-31 12:23 | PRG ---
DATE OF SERVICE: 08/31/2017 SUBJECTIVE: The patient is awake and alert but somewhat confused, in no distress. Denies any respir atory distress, pain, nausea, vomiting. Her states that this is a change, and she was normal ly more alert. OBJECTIVE: VITAL SIGNS: Blood pressure is 118/51 with a pulse of 83, respirations 24, temperature is 98; howeve r, upon standing, her blood pressure dropped to 90/50. ABDOMEN: Soft and nontender. LUNGS: Show a few diffuse rhonchi. NECK: Tracheostomy is clean with no bleeding. SKIN AND EXTREMITIES: No bruising. LABORATORY DATA: Shows her hemoglobin has dropped from 12.2-4.0 last week with a hematocrit of 13 an d white count of 16,700. PT/INR was supratherapeutic at 3.9 but it is now therapeutic at 2.6. BUN i s up to 64, creatinine 1.09. Sodium 139, potassium 5.0, chloride 103, and bicarb 26. Accu-Cheks are elevated at 290 to 324. I discussed the situation with the and stated that it appears that she did have a GI bleed, scan done at [facility], which showed possible bleeding from t he small intestine, but it does not appear that she has had a recent gastroscopy since 05/31/2017, wh en she had a similar GI bleed and was found to be completely normal. ASSESSMENT: Recurrent gastrointestinal bleed secondary to anticoagulation, possibly due to small-bow el bleeding versus upper gastrointestinal bleeding, although there is no melena. After discussion wi th , we will transfuse with 2 units of packed cells, 2 units fresh frozen plasma, we will disc ontinue warfarin, and we will discuss further evaluation and treatment, and most likely, we will not give any further anticoagulation. Also, has confirmed the patient has an advance directive, does not wish her to have CPR but does wish her to have fluids, and we will continue supportive treat ment. Her prognosis is grim, and it does appear that she is having multiple morbidities, which will shorten her life.
[2017-08-31] MEDS: HumaLOG 300 UNITS/3 ML VIAL SC PRN ×2 (12:39→17:11)
[2017-08-31 20:14] LABS: Hemoglobin 6.5 g/dL (12.0-16.0); Platelet Count 214 thou/uL (130-400)
[2017-08-31] MEDS: Lorazepam 1 MG TAB PO PRN (21:53)
[2017-08-31] MEDS: Melatonin 3 MG TAB PO SCH (21:53)
[2017-09-01] MEDS ORDERED: Furosemide 40 MG/4 ML VIAL SLOW IVP SCH (09:30)
[2017-09-01] MEDS: HumaLOG 300 UNITS/3 ML VIAL SC SCH ×2 (09:37→12:30)
[2017-09-01] MEDS: Carvedilol 6.25 MG TAB PO SCH (09:37)
[2017-09-01] MEDS: Amantadine HCl 100 mg Capsule PO SCH (09:38)
[2017-09-01] MEDS: Famotidine 20 MG TAB PO SCH (09:38)
[2017-09-01] MEDS: Gabapentin 300 MG CAP PO SCH (09:38)
[2017-09-01] MEDS: Docusate 100 MG CAP PO SCH (09:38)
[2017-09-01] MEDS: Losartan Potassium 25 MG TAB PO SCH (09:38)
[2017-09-01] MEDS: Clopidogrel Bisulfate 75 MG TAB PO SCH (09:38)
[2017-09-01] MEDS: Nitrofurantoin Macrocrystal 50 MG CAP PO SCH ×2 (09:38→12:37)
[2017-09-01] MEDS: Pantoprazole 40 MG VIAL IVP SCH (09:39)
[2017-09-01] MEDS: Levemir Flexpen 100 UNITS/ML PEN SC SCH (09:39)
[2017-09-01 09:45] LABS: INR-International Normal Ratio 1.4
--- NOTE | 2017-09-01 09:55 | RAD ---
CHEST 1 VIEW: HISTORY: CHF. Lung cancer. COMPARISON: 08/17/17. FINDINGS: Cardiac silhouette is magnified by projection. Pulmonary vasculature is slightly engorged. Mediasti num is midline with postoperative changes, tracheostomy appliance, and right subclavian MediPort, unc hanged in position. No lobar consolidation or pneumothorax are evident. There are degenerative rivera ges of the shoulders. IMPRESSION: Slight interval increase in pulmonary vascular congestion. Otherwise, stable radiographic appearance of the chest. POS: [facility]
[2017-09-01 10:52] VITALS: BP 172/73
[2017-09-01 11:27] VITALS: TEMP 98.5
[2017-09-01 11:51] LABS: Hemoglobin 10.8 g/dL (12.0-16.0)
[2017-09-01] MEDS: HumaLOG 300 UNITS/3 ML VIAL SC PRN (12:30)
--- NOTE | 2017-09-01 14:07 | DIS ---
DATE OF ADMISSION: To skilled unit, 08/23/2017. DATE OF DISCHARGE: To [facility] [place], 09/01/2017. HOSPITAL COURSE: The patient is an unfortunate 72-year-old white female with a history of multiple m edical problems including multiple sclerosis, hypertension, and cancer of the lung, status post chemo therapy, and partial lobectomy by Dr. Petty, who was also had recurrent multiple pulmonary emboli sec ondary to thrombogenic status from her cancer despite being treated with warfarin 4 mg daily. She al so has developed 2 separate episodes of severe GI bleeding with negative evaluation other than intest inal bleeding when she was adequately anticoagulated. She was admitted to the SNF unit for [facility]neros after a most recent GI bleed, which recurred in SNF unit when she was adequately anticoagulated. The patient and her family both feared going off anticoagulation because of the pain and shortness of breath with the PEs. Her auto electrician, Dr. Alvarado was consulted who felt like she was in a situ ation either she was going to have a GI bleed from the warfarin or she was going to have a blood clot from not being on warfarin. The family was given this information and his recommendation for her to be on hospice and they accepted this and therefore she has met with [facility] [place] and will b e discharged home with her request to be on warfarin to prevent any further pulmonary embolus, even t roel she has high risk for recurrent GI bleed. Her most recent GI bleed occurred shortly prior to d ischarge when her hemoglobin dropped from 12.2-4.0. She was subsequently transfused with 2 units of packed cells with an increase to only 6.5 and then was given another 2 units of packed cells with H a nd H pending. She did develop a little dyspnea, which responded to IV Lasix and nebulizer treatment and wished to be discharged home on her warfarin at that time, [facility] [place] nurse arrived an d accepted the patient and she will be discharged home on her discharge medications of Zofran 4 mg as needed for nausea, Tylenol as needed for pain, amiodarone 200 mg nightly, aspirin 81 mg daily, carve dilol 6.25 twice daily, Plavix 75 daily, docusate 100 twice daily, Pepcid 20 mg twice daily, gabapent in 300 mg 3 times daily, Humalog 5 units before meals, Levemir 38 units twice daily, lorazepam 1 mg a t night for sleep, losartan 25 mg daily, nitrofurantoin 50 mg 4 times daily for 1 week, her rosuvasta tin was discontinued. She was in no distress at rest at this time and was ready to be discharged nilay e. FINAL DIAGNOSES: Include: 1. Recurrent gastrointestinal bleeding when on warfarin. 2. Recurrent pulmonary embolus when off warfarin secondary to thrombogenic status from cancer of the lung. 3. History of cancer of lung, status post partial lobectomy and chemotherapy. 4. Coronary artery disease, status post myocardial infarction with cardiac stents. 5. Diabetes type 2, insulin-dependent. 6. Multiple sclerosis. 7. Chronic vocal cord paralysis status post recent lobectomy for cancer of the lung requiring trache ostomy.
== END 2017-09-01 14:15 | disposition hospice, home (50) | DRG 948 ==
LOC: NAV ACUTE 16:45
PROVIDERS: ADMIT Family Medicine; ATTEND Family Medicine
PROC: 30233K1 Transfusion of Nonautologous Frozen Plasma into Peripheral Vein, Percutaneous Approach (ICD-10-PCS; principal; 2017-08-23)
PROC: 30233N1 Transfusion of Nonautologous Red Blood Cells into Peripheral Vein, Percutaneous Approach (ICD-10-PCS; 2017-08-23)
DX: R53.1 Weakness (principal); J96.11 Chronic respiratory failure with hypoxia; I27.82 Chronic pulmonary embolism; Z93.0 Tracheostomy status; K92.2 Gastrointestinal hemorrhage, unspecified; G35 Multiple sclerosis; J38.00 Paralysis of vocal cords and larynx, unspecified; N39.0 Urinary tract infection, site not specified; J44.9 Chronic obstructive pulmonary disease, unspecified; R53.81 Other malaise; R06.1 Stridor; I10 Essential (primary) hypertension; Z86.718 Personal history of other venous thrombosis and embolism; Z86.711 Personal history of pulmonary embolism; Z79.01 Long term (current) use of anticoagulants; E11.9 Type 2 diabetes mellitus without complications; Z86.73 Personal history of transient ischemic attack (TIA), and cerebral infarction without residual deficits; D64.9 Anemia, unspecified; Z85.118 Personal history of other malignant neoplasm of bronchus and lung; Z92.21 Personal history of antineoplastic chemotherapy; Z79.4 Long term (current) use of insulin; I25.10 Atherosclerotic heart disease of native coronary artery without angina pectoris; I25.2 Old myocardial infarction; Z79.82 Long term (current) use of aspirin; Z91.013 Allergy to seafood; Z87.891 Personal history of nicotine dependence; Z95.0 Presence of cardiac pacemaker; Z90.2 Acquired absence of lung [part of]
CPT/HCPCS: 36415; 36416; 36430; 71010; 80048; 80053; 81001; 85014; 85018; 85025; 85610; 86850; 86900; 86901; 87086; 94640; A4216; C9113; G8996-GN-CM; G8997-GN-CL; J1642; J1815; J1940; J7050; J7620; P9016; P9059